=== PATIENT | female | born 1950 | race Caucasian/White ===

== ENCOUNTER → 2016-11-25 | Outpatient (REF) | payer MEDICARE, OTHER ==
[2016-11-25 12:25] LABS: ALBUMIN 3.6 GM/DL (3.2-5.2); ALBUMIN/GLOBULIN RATIO 1.16 (1.00-1.93); ALKALINE PHOSPHATASE 61 U/L (45-117); ALT/SGPT 21 U/L (12-78); ANION GAP 10 MEQ/L (8-16); AST/SGOT 17 U/L (15-37); BILIRUBIN,TOTAL 0.4 MG/DL (0.2-1.0); BLOOD UREA NITROGEN 24 MG/DL (7-18); CALCIUM LEVEL 8.5 MG/DL (8.8-10.2); CARBON DIOXIDE LEVEL 23 MEQ/L (21-32); CHLORIDE LEVEL 112 MEQ/L (98-107); FREE T4 1.36 NG/DL (0.76-1.46); GLOMERULAR FILTRATION RATE > 60.0 (>45); GLUCOSE, FASTING 88 MG/DL (80-110); POTASSIUM SERUM 4.3 MEQ/L (3.5-5.1); SODIUM LEVEL 145 MEQ/L (136-145); TOTAL PROTEIN 6.7 GM/DL (6.4-8.2)
== END ==
LOC: M SFHCPLAZ 08:18
PROVIDERS: ATTEND Family Medicine
DX: E78.5 Hyperlipidemia, unspecified (principal); E03.9 Hypothyroidism, unspecified; R73.01 Impaired fasting glucose

== ENCOUNTER → 2017-03-15 | Outpatient (REF) | payer MEDICARE, OTHER ==
[2017-03-15 12:37] LABS: ALBUMIN/GLOBULIN RATIO 1.25 (1.00-1.93); ALKALINE PHOSPHATASE 66 U/L (45-117); ALT/SGPT 26 U/L (12-78); ANION GAP 10 MEQ/L (8-16); AST/SGOT 16 U/L (15-37); BILIRUBIN,TOTAL 0.7 MG/DL (0.2-1.0); BLOOD UREA NITROGEN 33 MG/DL (7-18); CALCIUM LEVEL 9.5 MG/DL (8.8-10.2); CARBON DIOXIDE LEVEL 25 MEQ/L (21-32); CHLORIDE LEVEL 111 MEQ/L (98-107); CHOLESTEROL LEVEL 177 MG/DL (<200); CREATININE FOR GFR 0.76 MG/DL (0.55-1.02); GLOMERULAR FILTRATION RATE > 60.0 (>45); GLUCOSE, FASTING 96 MG/DL (80-110); POTASSIUM SERUM 4.7 MEQ/L (3.5-5.1); SODIUM LEVEL 146 MEQ/L (136-145); TOTAL PROTEIN 7.2 GM/DL (6.4-8.2); TRIGLYCERIDES LEVEL 64 MG/DL (<150)
== END ==
LOC: M SFHCPLAZ 08:34
PROVIDERS: ATTEND Family Medicine
DX: E78.5 Hyperlipidemia, unspecified (principal); E03.9 Hypothyroidism, unspecified; R73.01 Impaired fasting glucose

== ENCOUNTER → 2017-03-22 | Outpatient (CLI) | payer MEDICARE, OTHER ==
--- NOTE | 2017-03-22 11:25 | REP ---
Clinical: Pain. Technique: AP and lateral views of the right humerus. Findings: No acute fracture dislocation. Age-related changes at the shoulder and elbow joint noted. Surrounding soft tissues are unremarkable. Impression: Normal, age-appropriate right humerus radiographs. Signed by Yoel Baig MD 03/22/2017 11:17 A
--- NOTE | 2017-03-22 11:38 | REP ---
RIGHT SHOULDER, COMPLETE: 03/22/2017 CLINICAL HISTORY: Shoulder pain. FINDINGS: Three views are provided. AC joint shows no widening of the joint space, elevation of the clavicle or spur formation. The clavicle is without fracture or focal lesion. The ribs, scapula and humerus are without fracture. There are minor degenerative changes of the inferior aspect of the glenohumeral joint. There is one tiny soft tissue calcification adjacent to the greater tuberosity of the humeral head barely visible but suggesting some calcific tendinopathy or calcific bursitis over the supraspinatus insertional footprint on the greater tuberosity. No other finding. IMPRESSION: 1. Minor degenerative changes glenohumeral joint and question of a small amount of calcification representing supraspinatus calcific tendinopathy. AC joint normal. No fracture. Signed by Lux Amaro MD 03/22/2017 04:14 P
== END ==
LOC: M RAD 10:47
PROVIDERS: ATTEND Family Medicine
DX: S46.211A Strain of muscle, fascia and tendon of other parts of biceps, right arm, initial encounter (principal); M19.011 Primary osteoarthritis, right shoulder; X58.XXXA Exposure to other specified factors, initial encounter; Y92.89 Other specified places as the place of occurrence of the external cause; Y93.89 Activity, other specified; Y99.8 Other external cause status
CPT/HCPCS: 73030; 73060; G0463

== ENCOUNTER → 2017-03-28 | Outpatient (CLI) | payer MEDICARE, OTHER ==
--- NOTE | 2017-03-28 10:34 | REP ---
MRI RIGHT HUMERUS: TECHNIQUE: Multiple sequences obtained in the axial, coronal and sagittal planes. The humerus demonstrates normal marrow signal except for some mild subchondral marrow edema in the humeral head. There is no occult fracture. There are mild to moderate hypertrophic degenerative changes at the acromioclavicular joint. Rotator cuff tendons are not optimally evaluated. However, there may be a tear of the supraspinatus tendon. The visualized biceps tendon appears intact. There is no tenosynovitis. There does appear to be glenohumeral joint effusion. Other soft tissue structures of the upper arm more inferiorly demonstrate no abnormal signal. Distally at the level of the elbow, the triceps, biceps, brachialis and brachioradialis demonstrate no abnormal signal and appear intact. The ligaments at the elbow cannot be evaluated. IMPRESSION: Visualized biceps tendon appears intact. I cannot evaluate the biceps labral complex. I also cannot optimally evaluate the rotator cuff tendons. There may be a tear of the supraspinatus tendon. Rotator cuff tendons would be better evaluated with an MRI of the right shoulder. Signed by Benedicto Galaviz MD 03/28/2017 04:59 P
== END ==
LOC: M PLARAD 07:46
PROVIDERS: ATTEND Family Medicine
DX: S46.211A Strain of muscle, fascia and tendon of other parts of biceps, right arm, initial encounter (principal); X58.XXXA Exposure to other specified factors, initial encounter; Y93.9 Activity, unspecified; Y92.9 Unspecified place or not applicable; Y99.8 Other external cause status

== ENCOUNTER → 2017-04-04 | Outpatient (CLI) | payer MEDICARE, OTHER ==
--- NOTE | 2017-04-04 09:57 | REP ---
MRI LEFT SHOULDER: TECHNIQUE: Axial T2 fat sat, gradient echo, sagittal oblique T2 fat sat, coronal oblique T1, T2 fat sat. There is a full thickness partial tear of the anterior supraspinatus tendon. Other rotator cuff tendons appear intact. There are moderate hypertrophic degenerative changes of the acromioclavicular joint. There is downward sloping of the acromion. There is mild fluid in the acromioclavicular joint with mild subchondral cystic changes on both sides of the joint. There is a type 1 acromion. Biceps tendon is within the bicipital groove. There is no Hill-Sachs deformity. Deltoid muscle demonstrates no abnormal signal. There is fraying at the biceps labral complex. I do not see a discrete labral tear. Subchondral cystic changes and mild edema is seen in the humeral head superiorly and laterally. There is a moderate joint effusion with fluid extending into the subacromial/subdeltoid bursae. No paralabral cyst is seen. IMPRESSION: Partial full thickness tear anterior supraspinatus tendon. Moderate hypertrophic degenerative changes acromioclavicular joint with downward sloping of the acromion. Fraying at the biceps labral complex without a discrete labral tear. Subchondral cystic changes and edema in the superolateral humeral head. Moderate joint effusion with fluid extending into the subacromial/subdeltoid bursae. Signed by Benedicto Galaviz MD 04/04/2017 05:32 P
== END ==
LOC: M PLARAD 07:34
PROVIDERS: ATTEND Family Medicine
DX: S46.211A Strain of muscle, fascia and tendon of other parts of biceps, right arm, initial encounter (principal); X58.XXXA Exposure to other specified factors, initial encounter; Y93.9 Activity, unspecified; Y92.9 Unspecified place or not applicable; Y99.8 Other external cause status

== ENCOUNTER → 2017-05-26 | Outpatient (CLI) | payer MEDICARE, OTHER ==
--- NOTE | 2017-06-01 11:00 | RADONC ---
RADIATION ONCOLOGY CONSULTATION NOTE DATE: 05/26/2017 CHART NUMBER: [id number]. DIAGNOSIS: Left breast cancer. STAGE: IB, [id number]. ECOG PERFORMANCE STATUS: Zero. CONSULTATION NOTE: Ms. 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 HISTORY OF PRESENT ILLNESS: The patient was in the usual state of health until imaging revealed a suspicious area in her left breast. On 03/16/2017, the patient underwent lumpectomy and sentinel lymph node biopsy. Pathology revealed a 0.8 cm, well-differentiated infiltrating ductal carcinoma of the left breast. A total of three sentinel lymph nodes were sampled, two of which were negative for malignancy and one which showed a 1.5 mm micrometastasis. It was noted that there was extranodal tumor extension in that axillary lymph node. It was deemed that the patient would not benefit from systemic therapy and she is now presenting for consideration of postoperative radiation therapy as a therapeutic option. PAST MEDICAL HISTORY: The patient's past medical history is positive for a right rotator cuff tear. She has loss of mobility of the right upper extremity and is scheduled for surgery next 05/31/2017. The patient's past medical history is otherwise positive for cataracts, arthritis and some hypothyroidism. She had a tubal ligation in the past as well as a partial hysterectomy and a cholecystectomy. ALLERGIES: The patient has NO KNOWN DRUG ALLERGIES. SOCIAL HISTORY: The patient quit smoking in 1970. She does not abuse alcohol. FAMILY HISTORY: The patient's family history is positive for maternal grandmother with stomach cancer. REVIEW OF SYSTEMS: The patient's review of systems is positive for physical limitations secondary to her rotator cuff tear. It is otherwise noncontributory. Denies nausea, vomiting, fevers, chills, night sweats, diplopia, headaches, anxiety or depression, anorexia, weight loss, visual disturbances, chest pain, urinary or bowel difficulties, bone pain, or neurological problems. PHYSICAL EXAMINATION: The patient is a well-developed, well-nourished, 67-year-old white female, in no acute distress. HEENT exam is normocephalic, atraumatic. Extraocular movements are intact. There is no palpable cervical, supraclavicular, infraclavicular, axillary, or inguinal lymphadenopathy present. Lungs are clear to auscultation and percussion. Heart has a regular rate and rhythm. Abdomen is benign with no hepatosplenomegaly, masses, or tenderness. Breast examination reveals no masses or discharge bilaterally. Skeletal examination reveals no tenderness to pressure or percussion of the bony skeleton. Extremities reveal no clubbing, cyanosis, or edema. She has a very limited range of motion of her right extremity consistent with her above history of the rotator cuff tear. Neurologic exam is grossly intact, as is the remainder of the physical examination. ASSESSMENT: Clearly, the patient is a candidate for external beam radiation therapy and I so informed her. I have discussed with the patient in detail the potential benefits as well as possible acute and chronic sequelae of external beam radiation therapy. We discussed logistics of treatment planning, simulation and subsequent fractionated daily radiation treatments. The patient is scheduled for surgery on a rotator cuff on Tuesday. We therefore, will attempt to undertake simulation the following week if she is comfortable enough to lay on our treatment table. If not, we will reschedule after that. Thank you for allowing us to participate in the care of this very pleasant woman. If I could be of any further assistance or provide you with any information, please free to contact me anytime. As always, with warm regards. cc: Dr. Ramírez cc: MD Cuauhtemoc Jeffries MD
== END ==
LOC: M ONCR 13:55
PROVIDERS: ATTEND Radiology Radiation Oncology
DX: C50.912 Malignant neoplasm of unspecified site of left female breast (principal); Z87.891 Personal history of nicotine dependence

== ENCOUNTER → 2017-05-28 | Outpatient (CLI) | payer MEDICARE, OTHER ==
[~2017-05-28] MED LIST: ESTR62CR; LIPI20TA PO; PROT1TAB2 PO; RANI300C PO; SYNT88TA2 PO; ZOFR4TAB3 PO
[2017-05-28 15:19] LABS: BASO # 0.1 10^3/uL (0.0-0.2); BASO % 0.8 % (0.0-1.0); EOS # 0.3 10^3/uL (0.0-0.50); EOS % 3.9 % (0.0-3.0); IMMATURE GRANULOCYTE % 0.3 % (0-0); LYMPH # 2.7 10^3/uL (1.5-4.5); LYMPH % 40.4 % (24.0-44.0); MEAN CORPUSCULAR HEMOGLOBIN 29.1 pg (27.0-33.0); MEAN CORPUSCULAR VOLUME 88.3 fl (80.0-96.0); MONO # 0.5 10^3/uL (0.0-0.8); MONO % 7.7 % (0.0-5.0); NEUTROPHILS # 3.1 10^3/uL (1.8-7.7); NEUTROPHILS % 46.9 % (36.0-66.0); PLATELET COUNT, AUTOMATED 260 10^3/uL (150-450); RED CELL DISTRIBUTION WIDTH 13.2 % (11.5-14.5); WHITE BLOOD COUNT 6.6 10^3/uL (4.0-10.0)
[2017-05-28 15:34] LABS: INR 0.96
[2017-05-28 15:45] LABS: ALBUMIN 3.8 GM/DL (3.2-5.2); ALBUMIN/GLOBULIN RATIO 1.31 (1.00-1.93); ALKALINE PHOSPHATASE 65 U/L (45-117); ALT/SGPT 24 U/L (12-78); ANION GAP 6 MEQ/L (8-16); AST/SGOT 16 U/L (7-37); BILIRUBIN,TOTAL 0.6 MG/DL (0.2-1.0); BLOOD UREA NITROGEN 19 MG/DL (7-18); CALCIUM LEVEL 8.8 MG/DL (8.8-10.2); CARBON DIOXIDE LEVEL 29 MEQ/L (21-32); CHLORIDE LEVEL 105 MEQ/L (98-107); GLOMERULAR FILTRATION RATE > 60.0 (>45); GLUCOSE, FASTING 84 MG/DL (80-110); POTASSIUM SERUM 3.8 MEQ/L (3.5-5.1); SODIUM LEVEL 140 MEQ/L (136-145); TOTAL PROTEIN 6.7 GM/DL (6.4-8.2)
== END ==
LOC: M LAB 15:01
PROVIDERS: ATTEND Family Medicine
DX: Z01.818 Encounter for other preprocedural examination (principal)

== ENCOUNTER 2017-06-04 09:27 | Emergency (ER) | payer MEDICARE, OTHER ==
[~2017-06-04] VITALS: Ht 167.6 cm; Wt 68.9 kg
[2017-06-04] MEDS ORDERED: RANI300C PO (09:40)
[2017-06-04] MEDS ORDERED: LIPI20TA PO (09:40)
[2017-06-04] MEDS ORDERED: ESTR62CR (09:40)
[2017-06-04] MEDS ORDERED: SYNT88TA2 PO (09:40)
[2017-06-04] MEDS ORDERED: PROT1TAB2 PO (09:40)
[2017-06-04] MEDS ORDERED: ONDANSETRON 4 MG ORAL DISINTEGRATING TAB (S0181) PO ONE ×2 (10:30→13:30)
[2017-06-04 10:54] LABS: BASO % 0.2 % (0.0-1.0); EOS % 0.4 % (0.0-3.0); IMMATURE GRANULOCYTE % 0.2 % (0-0); LYMPH # 1.4 10^3/uL (1.5-4.5); LYMPH % 13.9 % (24.0-44.0); MEAN CORPUSCULAR HEMOGLOBIN 29.6 pg (27.0-33.0); MEAN CORPUSCULAR HGB CONC 34.1 g/dl (32.0-36.5); MEAN CORPUSCULAR VOLUME 86.7 fl (80.0-96.0); MONO # 0.6 10^3/uL (0.0-0.8); NEUTROPHILS # 7.9 10^3/uL (1.8-7.7); NEUTROPHILS % 79.3 % (36.0-66.0); PLATELET COUNT, AUTOMATED 230 10^3/uL (150-450); RED CELL DISTRIBUTION WIDTH 13.2 % (11.5-14.5)
[2017-06-04 11:15] LABS: ALBUMIN 3.1 GM/DL (3.2-5.2); ALBUMIN/GLOBULIN RATIO 1.07 (1.00-1.93); ALKALINE PHOSPHATASE 93 U/L (45-117); ALT/SGPT 45 U/L (12-78); AMYLASE 39 U/L (25-115); ANION GAP 9 MEQ/L (8-16); AST/SGOT 38 U/L (7-37); BILIRUBIN,DIRECT 0.2 MG/DL (0.0-0.2); BLOOD UREA NITROGEN 15 MG/DL (7-18); CALCIUM LEVEL 8.5 MG/DL (8.8-10.2); CARBON DIOXIDE LEVEL 26 MEQ/L (21-32); CHLORIDE LEVEL 104 MEQ/L (98-107); CREATININE FOR GFR 0.62 MG/DL (0.55-1.02); GLOMERULAR FILTRATION RATE > 60.0 (>45); GLUCOSE, FASTING 121 MG/DL (80-110); POTASSIUM SERUM 4.1 MEQ/L (3.5-5.1); SODIUM LEVEL 139 MEQ/L (136-145)
[2017-06-04] MEDS ORDERED: ACETAMINOPHEN 325 MG TAB PO ONE (11:45)
[2017-06-04] MEDS ORDERED: ZOFR4TAB3 PO (13:42)
[2017-06-04] MEDS ORDERED: DICYCLOMINE 10 MG CAP PO ONE (13:45)
[2017-06-04 14:51] VITALS: BP 145/61
== END 2017-06-04 15:05 | disposition home or self-care (01) ==
LOC: M ED 09:27
DX: R10.13 Epigastric pain (principal); R11.10 Vomiting, unspecified; R19.7 Diarrhea, unspecified; T40.605A Adverse effect of unspecified narcotics, initial encounter; X58.XXXA Exposure to other specified factors, initial encounter; Y92.89 Other specified places as the place of occurrence of the external cause; Y93.89 Activity, other specified; Y99.8 Other external cause status; E03.9 Hypothyroidism, unspecified; E78.5 Hyperlipidemia, unspecified; K21.9 Gastro-esophageal reflux disease without esophagitis; Z79.899 Other long term (current) drug therapy; Z79.82 Long term (current) use of aspirin; Z87.891 Personal history of nicotine dependence

== ENCOUNTER 2017-06-23 11:39 | Outpatient (RCR) | payer MEDICARE, OTHER | END 2017-07-10 | LOC: M ONCR 11:39 | DX: C50.512 Malignant neoplasm of lower-outer quadrant of left female breast (principal) | CPT/HCPCS: 77300 ==

== ENCOUNTER → 2017-06-23 | Outpatient (CLI) | payer MEDICARE, OTHER | LOC: M RAD 10:25 | PROVIDERS: ATTEND Radiology Radiation Oncology | DX: C50.919 Malignant neoplasm of unspecified site of unspecified female breast (principal) ==

== ENCOUNTER 2017-07-12 10:04 | Outpatient (RCR) | payer MEDICARE, OTHER | END 2017-08-10 | LOC: M ONCR 10:04 | DX: C50.512 Malignant neoplasm of lower-outer quadrant of left female breast (principal) | CPT/HCPCS: 77300 ==

== ENCOUNTER → 2017-07-12 | Outpatient (REF) | payer MEDICARE, OTHER ==
[2017-07-12 10:47] LABS: APPEARANCE, URINE MANUAL HAZY (CLEAR); COLOR, URINE MANUAL YELLOW (YELLOW)
[2017-07-12 10:48] LABS: BILIRUBIN, URINE MANUAL NEGATIVE (NEGATIVE); GLUCOSE, URINE (UA) MANUAL NEGATIVE (NEGATIVE); KETONE, URINE MANUAL NEGATIVE (NEGATIVE); MICROSCOPIC INDICATED? MAN YES (NO); NITRITE, URINE MANUAL NEGATIVE (NEGATIVE); PROTEIN, URINE MANUAL NEGATIVE (NEGATIVE); UROBILINOGEN, URINE MANUAL NORMAL (NORMAL)
[2017-07-12 10:50] LABS: BASO # 0.1 10^3/uL (0.0-0.2); BASO % 0.8 % (0.0-1.0); BLOOD URINE MANUAL NEGATIVE (NEGATIVE); EOS # 0.3 10^3/uL (0.0-0.50); EOS % 4.4 % (0.0-3.0); HEMOGLOBIN 13.2 g/dl (12.0-16.0); IMMATURE GRANULOCYTE % 0.2 % (0-0); LEUKOCYTE ESTERASE, URINE MAN TRACE (NEGATIVE); LYMPH # 1.5 10^3/uL (1.5-4.5); LYMPH % 25.8 % (24.0-44.0); MEAN CORPUSCULAR HEMOGLOBIN 29.3 pg (27.0-33.0); MEAN CORPUSCULAR HGB CONC 32.2 g/dl (32.0-36.5); MEAN CORPUSCULAR VOLUME 91.1 fl (80.0-96.0); MONO # 0.6 10^3/uL (0.0-0.8); MONO % 9.8 % (0.0-5.0); NEUTROPHILS # 3.5 10^3/uL (1.8-7.7); PLATELET COUNT, AUTOMATED 260 10^3/uL (150-450); RED CELL DISTRIBUTION WIDTH 14.6 % (11.5-14.5); WHITE BLOOD COUNT 5.9 10^3/uL (4.0-10.0)
[2017-07-12 10:51] LABS: BACTERIA, URINE LARGE AMOUNT; HYALINE CAST, URINE NONE SEEN /lpf (0-1); MICROSCOPIC EXAM PERFORMED; RBC, URINE NONE SEEN /hpf (0-3); SQUAMOUS EPITHELIAL CELL URINE MOD AMOUNT /hpf (SMALL AMT)
[2017-07-12 11:06] LABS: TOTAL 25(OH) VITAMIN D 48.9 NG/ML (30.0-100.0)
[2017-07-12 11:10] LABS: FREE T4 1.23 NG/DL (0.76-1.46)
[2017-07-12 11:23] LABS: ESTIMATED AVERAGE GLUCOSE 111 MG/DL (60-110); HEMOGLOBIN A1c 5.5 %
[2017-07-12 11:35] LABS: CREATININE, URINE 87.7 MG/DL; MALB URINE SIEMENS 41.4 MG/L; MAU/CREAT RATIO 47.2 MCG/MG (0.0-30.0)
== END ==
LOC: M SFHCPLAZ 08:18
DX: D72.819 Decreased white blood cell count, unspecified (principal); E03.9 Hypothyroidism, unspecified; R73.01 Impaired fasting glucose; E55.9 Vitamin D deficiency, unspecified
CPT/HCPCS: 84443

== ENCOUNTER 2017-08-11 11:01 | Outpatient (RCR) | payer MEDICARE, OTHER | END 2017-09-07 | LOC: M ONCR 11:01 | DX: C50.512 Malignant neoplasm of lower-outer quadrant of left female breast (principal) | CPT/HCPCS: 77300 ==

== ENCOUNTER → 2017-09-21 | Outpatient (CLI) | payer MEDICARE, OTHER | LOC: M ONCR 11:33 | DX: C50.512 Malignant neoplasm of lower-outer quadrant of left female breast (principal) | CPT/HCPCS: G0463 ==

== ENCOUNTER → 2017-12-08 | Outpatient (REF) | payer MEDICARE, OTHER | LOC: M SFHCWAGY 10:19 | DX: Z12.4 Encounter for screening for malignant neoplasm of cervix (principal) | CPT/HCPCS: G0123 ==

== ENCOUNTER → 2017-12-13 | Outpatient (CLI) | payer MEDICARE, OTHER ==
[~2017-12-13] MED LIST changes: +E-Z-GAS II EFFERVESCENT PACKET (SODIUM BICARB./CITRIC ACID/SIMETHICONE) As Ordered; +E-Z-HD 98% w/w 340GM SUSP BTL As Ordered; +E-Z-PAQUE 96% w/w SUSP 176GM BTL As Ordered; -ESTR62CR; -LIPI20TA PO; -PROT1TAB2 PO; -RANI300C PO; -SYNT88TA2 PO; -ZOFR4TAB3 PO
== END ==
LOC: M RAD 10:07
DX: R10.13 Epigastric pain (principal)
CPT/HCPCS: 74241

== ENCOUNTER → 2018-03-16 | Outpatient (REF) | payer MEDICARE, OTHER ==
[2018-03-16 11:47] LABS: BASO % 0.9 % (0.0-1.0); EOS # 0.2 10^3/uL (0.0-0.50); EOS % 4.2 % (0.0-3.0); IMMATURE GRANULOCYTE % 0.2 % (0-3.0); LYMPH # 1.4 10^3/uL (1.5-4.5); LYMPH % 33.5 % (24.0-44.0); MEAN CORPUSCULAR HEMOGLOBIN 29.3 pg (27.0-33.0); MEAN CORPUSCULAR HGB CONC 32.5 g/dl (32.0-36.5); MEAN CORPUSCULAR VOLUME 90.3 fl (80.0-96.0); MONO # 0.4 10^3/uL (0.0-0.8); MONO % 9.4 % (0.0-5.0); NEUTROPHILS # 2.2 10^3/uL (1.8-7.7); NEUTROPHILS % 51.8 % (36.0-66.0); PLATELET COUNT, AUTOMATED 223 10^3/uL (150-450); RED BLOOD COUNT 4.43 10^6/uL (4.00-5.40); RED CELL DISTRIBUTION WIDTH 13.3 % (11.5-14.5); WHITE BLOOD COUNT 4.2 10^3/uL (4.0-10.0)
[2018-03-16 12:06] LABS: ESTIMATED AVERAGE GLUCOSE 120 MG/DL (60-110); HEMOGLOBIN A1c 5.8 %
[2018-03-16 13:02] LABS: ALBUMIN 3.6 GM/DL (3.2-5.2); ALBUMIN/GLOBULIN RATIO 1.09 (1.00-1.93); ALKALINE PHOSPHATASE 77 U/L (45-117); ALT/SGPT 22 U/L (12-78); ANION GAP 9 MEQ/L (8-16); AST/SGOT 20 U/L (7-37); BILIRUBIN,TOTAL 0.8 MG/DL (0.2-1.0); BLOOD UREA NITROGEN 23 MG/DL (7-18); CARBON DIOXIDE LEVEL 25 MEQ/L (21-32); CHLORIDE LEVEL 108 MEQ/L (98-107); FREE T4 1.29 NG/DL (0.76-1.46); GLOMERULAR FILTRATION RATE > 60.0 (>39); GLUCOSE, FASTING 88 MG/DL (70-100); POTASSIUM SERUM 4.5 MEQ/L (3.5-5.1); SODIUM LEVEL 142 MEQ/L (136-145); THYROID STIMULATING HORMONE 0.079 uIU/ML (0.358-3.740); TOTAL PROTEIN 6.9 GM/DL (6.4-8.2)
== END ==
LOC: M SFHCPLAZ 08:49
DX: D72.819 Decreased white blood cell count, unspecified (principal); E55.9 Vitamin D deficiency, unspecified; E03.9 Hypothyroidism, unspecified; R73.01 Impaired fasting glucose; K21.9 Gastro-esophageal reflux disease without esophagitis
CPT/HCPCS: 84443

== ENCOUNTER → 2018-08-01 | Outpatient (REF) | payer MEDICARE, OTHER ==
[~2018-08-01] MED LIST changes: -E-Z-GAS II EFFERVESCENT PACKET (SODIUM BICARB./CITRIC ACID/SIMETHICONE) As Ordered; -E-Z-HD 98% w/w 340GM SUSP BTL As Ordered; -E-Z-PAQUE 96% w/w SUSP 176GM BTL As Ordered; +ESTR62CR; +LIPI20TA PO; +PROT1TAB2 PO; +RANI300C PO; +SILV40CR EXT; +SYNT88TA2 PO; +ZOFR4TAB14 PO
[2018-08-01 11:15] LABS: ALBUMIN 3.6 GM/DL (3.2-5.2); ALT/SGPT 21 U/L (12-78); BILIRUBIN,TOTAL 0.4 MG/DL (0.2-1.0); BLOOD UREA NITROGEN 26 MG/DL (7-18); CALCIUM LEVEL 9.1 MG/DL (8.8-10.2); CARBON DIOXIDE LEVEL 26 MEQ/L (21-32); CHLORIDE LEVEL 108 MEQ/L (98-107); CREATININE FOR GFR 0.87 MG/DL (0.55-1.30); FREE T4 1.14 NG/DL (0.76-1.46); GLOMERULAR FILTRATION RATE > 60.0 (>39); GLUCOSE, FASTING 95 MG/DL (70-100); POTASSIUM SERUM 4.6 MEQ/L (3.5-5.1); SODIUM LEVEL 143 MEQ/L (136-145); TOTAL 25(OH) VITAMIN D 78.9 NG/ML (30.0-100.0); TOTAL PROTEIN 7.1 GM/DL (6.4-8.2)
[2018-08-01 11:20] LABS: HEMOGLOBIN A1c 6.4 %
[2018-08-01 11:34] LABS: MALB URINE SIEMENS 44.5 MG/L; MAU/CREAT RATIO 33.9 MCG/MG (0.0-30.0)
[2018-08-01 12:51] LABS: APPEARANCE, URINE HAZY (CLEAR); BACTERIA, URINE AUTO NEGATIVE (NEGATIVE); BILIRUBIN, URINE AUTO NEGATIVE (NEGATIVE); BLOOD, URINE BLOOD NEGATIVE (NEGATIVE); COLOR, URINE AMBER (YELLOW); GLUCOSE, URINE (UA) AUTO NEGATIVE (NEGATIVE); KETONE, URINE AUTO NEGATIVE (NEGATIVE); LEUKOCYTE ESTERASE, URINE AUTO 3+ (NEGATIVE); MUCUS, URINE SMALL (NEGATIVE); NITRITE, URINE AUTO NEGATIVE (NEGATIVE); PROTEIN, URINE AUTO NEGATIVE (NEGATIVE); RBC, URINE AUTO 4 /HPF (0-3); SQUAMOUS EPITHELIAL CELL UR AU 4 /HPF (0-6); UROBILINOGEN, URINE AUTO 0.2 mg/dL (0.0-2.0); WBC, URINE AUTO 48 /HPF (0-3)
== END ==
LOC: M SFHCPLAZ 08:58
PROVIDERS: ATTEND Family Medicine
DX: E55.9 Vitamin D deficiency, unspecified (principal); E03.9 Hypothyroidism, unspecified; R73.01 Impaired fasting glucose

== ENCOUNTER → 2018-12-26 | Outpatient (REF) | payer MEDICARE, OTHER ==
[2018-12-26 14:17] LABS: BASO # 0.1 10^3/uL (0.0-0.2); BASO % 1.2 % (0.0-1.0); EOS # 0.2 10^3/uL (0.0-0.50); EOS % 4.7 % (0.0-3.0); HEMATOCRIT 42.2 % (36.0-47.0); HEMOGLOBIN 13.6 g/dl (12.0-15.5); LYMPH # 1.6 10^3/uL (1.5-4.5); LYMPH % 38.1 % (24.0-44.0); MEAN CORPUSCULAR HEMOGLOBIN 29.4 pg (27.0-33.0); MEAN CORPUSCULAR HGB CONC 32.2 g/dl (32.0-36.5); MEAN CORPUSCULAR VOLUME 91.3 fl (80.0-96.0); MONO # 0.3 10^3/uL (0.0-0.8); NEUTROPHILS % 47.8 % (36.0-66.0); PLATELET COUNT, AUTOMATED 225 10^3/uL (150-450); RED BLOOD COUNT 4.62 10^6/uL (4.00-5.40); WHITE BLOOD COUNT 4.3 10^3/uL (4.0-10.0)
[2018-12-26 14:31] LABS: ALBUMIN 3.9 GM/DL (3.2-5.2); ALT/SGPT 28 U/L (12-78); BILIRUBIN,TOTAL 0.6 MG/DL (0.2-1.0); BLOOD UREA NITROGEN 24 MG/DL (7-18); CALCIUM LEVEL 9.3 MG/DL (8.8-10.2); CARBON DIOXIDE LEVEL 29 MEQ/L (21-32); CHLORIDE LEVEL 109 MEQ/L (98-107); CHOLESTEROL LEVEL 179 MG/DL (<200); CHOLESTEROL RISK RATIO 2.386 (<5); FREE T4 0.92 NG/DL (0.76-1.46); GLOMERULAR FILTRATION RATE > 60.0 (>39); GLUCOSE, FASTING 91 MG/DL (70-100); HDL CHOLESTEROL 75 MG/DL (>40); LDL CHOLESTEROL 88 MG/DL (<100); NON-HDL-C 104 MG/DL; POTASSIUM SERUM 4.1 MEQ/L (3.5-5.1); SODIUM LEVEL 143 MEQ/L (136-145); TOTAL PROTEIN 7.2 GM/DL (6.4-8.2); TRIGLYCERIDES LEVEL 82 MG/DL (<150)
[2018-12-26 14:38] LABS: HEMOGLOBIN A1c 6.3 %
== END ==
LOC: M SFHCPLAZ 09:20
PROVIDERS: ATTEND Family Medicine
DX: D72.819 Decreased white blood cell count, unspecified (principal); R73.01 Impaired fasting glucose; E03.9 Hypothyroidism, unspecified; E78.5 Hyperlipidemia, unspecified

== ENCOUNTER → 2019-06-19 | Outpatient (REF) | payer MEDICARE, OTHER ==
[2019-06-19 16:54] LABS: CHOLESTEROL RISK RATIO 2.342 (<5); FREE T4 1.47 NG/DL (0.76-1.46); THYROID STIMULATING HORMONE 0.023 uIU/ML (0.358-3.740)
[2019-06-19 16:56] LABS: PTH INTACT 64.3 PG/ML (18.5-88.0); TOTAL 25(OH) VITAMIN D 57.7 NG/ML (30.0-100.0)
[2019-06-19 16:59] LABS: HEMOGLOBIN A1c 6.2 %
== END ==
LOC: M SFHCPLAZ 13:11
PROVIDERS: ATTEND Family Medicine
DX: K21.9 Gastro-esophageal reflux disease without esophagitis (principal); E03.9 Hypothyroidism, unspecified; R73.01 Impaired fasting glucose; E55.9 Vitamin D deficiency, unspecified; E78.5 Hyperlipidemia, unspecified; R10.13 Epigastric pain

== ENCOUNTER → 2019-06-19 | Outpatient (CLI) | payer MEDICARE, OTHER ==
--- NOTE | 2019-06-19 15:51 | REPPI ---
Chest x-ray: Two views. History: Intercostal neuropathy pain. No comparison chest x-ray. Findings: There is a moderate broad-based dextroconvex scoliotic curve of the lower thoracic spine. Thoracic vertebral body heights are preserved. Alignment is normal. There is degenerative disc disease at multiple levels. There are clips in the right upper quadrant of the abdomen. The lungs are well inflated and clear. There are some clips in the soft tissues of the left breast as well and the breast tissues are asymmetric suggesting previous left breast surgery. Heart is not enlarged. No hilar or mediastinal mass is seen. Impression: Dextroconvex thoracic scoliosis and degenerative disc disease. Clips in the right upper quadrant of the abdomen and the soft tissue of the left breast. Otherwise no acute disease. Electronically Signed by Waldemar Carney MD 06/19/2019 05:20 P
--- NOTE | 2019-06-19 15:58 | REPPI ---
Seven views cervical spine three views thoracic spine: 06/19/2019. Indication: Cervical thoracic pain. Comparison: 12/18/2009. Findings: There is no acute fracture, subluxation or dislocation. Extensive spondylosis is present most pronounced anteriorly at C5/C6. There is dextroscoliosis of the thoracic spine with the convexity centered at T10/T11. No lytic or blastic lesions are detected. Diffuse osteopenia is noted. No significant paraspinal soft tissue abnormalities are detected. Impression: No acute osseous injuries of the cervical or thoracic spines. Electronically Signed by Edu Montiel DO 06/19/2019 03:49 P
== END ==
LOC: M PLAIMG 13:38
PROVIDERS: ATTEND Family Medicine
DX: M85.88 Other specified disorders of bone density and structure, other site (principal); G54.8 Other nerve root and plexus disorders; K21.9 Gastro-esophageal reflux disease without esophagitis; E03.9 Hypothyroidism, unspecified; R73.01 Impaired fasting glucose; E55.9 Vitamin D deficiency, unspecified; E78.5 Hyperlipidemia, unspecified; R10.13 Epigastric pain
CPT/HCPCS: 36415; 71046; 72052; 72072; 80061; 82306; 83036; 83516; 83525; 83690; 83970; 84439; 84443; 86677; G0463

== ENCOUNTER → 2019-07-12 | Outpatient (CLI) | payer MEDICARE, OTHER ==
--- NOTE | 2019-07-18 13:45 | DEXA ---
AP SPINE L1 - L4 1.426 1.9 3.6 LT FEMUR TOTAL 0.954 -0.4 1.1 LT NECK 0.832 -1.5 0.3 RT FEMUR TOTAL 0.924 -0.7 0.9 RT NECK 0.781 -1.8 -0.1 TOTAL BODY TOTAL OTHER COMMENTS: Normal bone densitometry of the spine. There is low bone density of the hips. Lumbar scoliosis. The density of the spine has increased 2.1% since the initial exam on 04/10/2003. The spine density has decreased 0.6% since the most recent exam on 08/05/2015. The density of the left hip has decreased 1.8% since the initial exam on 04/10/2003. The density of the left hip has decreased 6.3% since the most recent exam on 08/05/2015. The density of the right hip has decreased 14.9% since the initial exam on 04/10/2003. The density of the right hip has decreased 6.6% since the most recent exam on 08/05/2015. FOLLOW-UP: Recommendation for the next bone density exam: 2 years. OLI
== END ==
LOC: M WHC 12:20
PROVIDERS: ATTEND Family Medicine
DX: M85.851 Other specified disorders of bone density and structure, right thigh (principal); M85.852 Other specified disorders of bone density and structure, left thigh; M41.26 Other idiopathic scoliosis, lumbar region

== ENCOUNTER → 2019-10-31 | Outpatient (REF) | payer MEDICARE, OTHER | LOC: M SFHCPLAZ 13:35 | PROVIDERS: ATTEND Family Medicine | DX: E03.9 Hypothyroidism, unspecified (principal); R73.01 Impaired fasting glucose; E78.5 Hyperlipidemia, unspecified; R10.13 Epigastric pain ==

== ENCOUNTER → 2019-11-01 | Outpatient (CLI) | payer MEDICARE, OTHER ==
[2019-11-01 10:47] LABS: EOS # 0.2 10^3/uL (0.0-0.5); EOS % 3.8 % (0.0-3.0); HEMATOCRIT 40.8 % (36.0-47.0); HEMOGLOBIN 13.3 g/dl (12.0-15.5); LYMPH # 1.8 10^3/uL (1.5-5.0); LYMPH % 42.2 % (24.0-44.0); MEAN CORPUSCULAR HEMOGLOBIN 29.1 pg (27.0-33.0); MEAN CORPUSCULAR HGB CONC 32.6 g/dl (32.0-36.5); MEAN CORPUSCULAR VOLUME 89.3 fl (80.0-96.0); MONO # 0.3 10^3/uL (0.0-0.8); NEUTROPHILS # 1.9 10^3/uL (1.5-8.5); PLATELET COUNT, AUTOMATED 208 10^3/uL (150-450); RED BLOOD COUNT 4.57 10^6/uL (4.00-5.40); WHITE BLOOD COUNT 4.2 10^3/uL (4.0-10.0)
[2019-11-01 11:01] LABS: ALBUMIN 3.6 GM/DL (3.2-5.2); ALT/SGPT 27 U/L (12-78); BILIRUBIN,TOTAL 0.7 MG/DL (0.2-1.0); BLOOD UREA NITROGEN 23 MG/DL (7-18); CALCIUM LEVEL 8.9 MG/DL (8.8-10.2); CARBON DIOXIDE LEVEL 31 MEQ/L (21-32); CHLORIDE LEVEL 110 MEQ/L (98-107); CHOLESTEROL LEVEL 159 MG/DL (<200); CHOLESTEROL RISK RATIO 2.523 (<5); CREATININE FOR GFR 0.72 MG/DL (0.55-1.30); FREE T4 1.37 NG/DL (0.76-1.46); GLOMERULAR FILTRATION RATE > 60.0 (>39); GLUCOSE, FASTING 101 MG/DL (70-100); HDL CHOLESTEROL 63 MG/DL (>40); LDL CHOLESTEROL 80 MG/DL (<100); NON-HDL-C 96 MG/DL; POTASSIUM SERUM 3.8 MEQ/L (3.5-5.1); SODIUM LEVEL 143 MEQ/L (136-145); THYROID STIMULATING HORMONE 0.144 uIU/ML (0.358-3.740); TOTAL PROTEIN 6.9 GM/DL (6.4-8.2); TRIGLYCERIDES LEVEL 79 MG/DL (<150)
[2019-11-01 11:03] LABS: VITAMIN B12 LEVEL 1025 PG/ML (247-911)
== END ==
LOC: M PLALAB 08:43
PROVIDERS: ATTEND Family Medicine
DX: R10.13 Epigastric pain (principal); E78.5 Hyperlipidemia, unspecified; R73.01 Impaired fasting glucose

== ENCOUNTER → 2019-11-05 | Outpatient (CLI) | payer MEDICARE, OTHER ==
--- NOTE | 2019-11-05 11:35 | REP ---
NUCLEAR GASTRIC EMPTYING SCAN: Following the oral administration of 1.06 mCi technetium-99m sulfur colloid in two scrambled eggs and 2 ounces of water, multiple images of the upper abdomen are performed in the anterior and posterior projections. Gastric activity is measured. At the end of 90 minutes, 27% of the ingested activity has emptied from the stomach. T1/2 is calculated to be 155 minutes. This is above normal value of 90 minutes. IMPRESSION: Mild to moderately delayed gastric emptying. Electronically Signed by Benedicto Galaviz MD 11/05/2019 11:56 A
== END ==
LOC: M RAD 07:23
PROVIDERS: ATTEND Family Medicine
DX: K30 Functional dyspepsia (principal)
CPT/HCPCS: 78264; A9541

== ENCOUNTER → 2020-03-27 | Outpatient (CLI) | payer MEDICARE, OTHER ==
[2020-03-27 15:08] LABS: ALBUMIN 3.9 GM/DL (3.2-5.2); ALT/SGPT 29 U/L (12-78); BILIRUBIN,TOTAL 0.7 MG/DL (0.2-1.0); BLOOD UREA NITROGEN 28 MG/DL (7-18); CALCIUM LEVEL 9.4 MG/DL (8.8-10.2); CARBON DIOXIDE LEVEL 25 MEQ/L (21-32); CHLORIDE LEVEL 110 MEQ/L (98-107); CHOLESTEROL LEVEL 204 MG/DL (<200); CHOLESTEROL RISK RATIO 2.615 (<5); FREE T4 1.32 NG/DL (0.76-1.46); GLOMERULAR FILTRATION RATE > 60.0 (>39); GLUCOSE, FASTING 96 MG/DL (70-100); HDL CHOLESTEROL 78 MG/DL (>40); LDL CHOLESTEROL 109 MG/DL (<100); NON-HDL-C 126 MG/DL; SODIUM LEVEL 143 MEQ/L (136-145); THYROID STIMULATING HORMONE 0.356 uIU/ML (0.358-3.740); TOTAL PROTEIN 7.3 GM/DL (6.4-8.2); TRIGLYCERIDES LEVEL 87 MG/DL (<150)
[2020-03-27 15:52] LABS: HEMOGLOBIN A1c 6.1 %
[2020-03-29 17:06] LABS: D001-IgE D pteronyssinus <0.10 kU/L (Class 0); E001-IgE Cat Epith/Dander < 0.10 kU/L (Class 0); E005-IgE Dog Dander < 0.10 kU/L (Class 0); G002-IgE Bermuda Grass < 0.10 kU/L (Class 0); G008-IgE Kentucky Bluegrass < 0.10 kU/L (Class 0); INSULIN LEVEL 22.3 uIU/mL (2.6-24.9); M001-IgE Penicillium chrysogen < 0.10 kU/L (Class 0); M002 IgE Cladosporium herbaru < 0.10 kU/L (Class 0); M003 IgE Aspergillus fumigatu < 0.10 kU/L (Class 0); M006-IgE Alternaria alternata < 0.10 kU/L (Class 0); T001-IgE Maple/Box Elder < 0.10 kU/L (Class 0); T003-IgE Common Silver Birch < 0.10 kU/L (Class 0); T006-IgE Cedar, Mountain < 0.10 kU/L (Class 0); T007-IgE Oak, White < 0.10 kU/L (Class 0); T008-IgE Elm, American < 0.10 kU/L (Class 0); T015-IgE Ash, White < 0.10 kU/L (Class 0); T041-IgE Hickory, White < 0.10 kU/L (Class 0); T070-IgE White Mulberry < 0.10 kU/L (Class 0); W001-IgE Ragweed, Short < 0.10 kU/L (Class 0); W009-IgE Plantain, English < 0.10 kU/L (Class 0); W014-IgE Pigweed, Rough < 0.10 kU/L (Class 0); W018-IgE Sheep Sorrel < 0.10 kU/L (Class 0)
== END ==
LOC: M PLALAB 10:44
PROVIDERS: ATTEND Family Medicine
DX: E03.9 Hypothyroidism, unspecified (principal); R73.01 Impaired fasting glucose; J30.9 Allergic rhinitis, unspecified

== ENCOUNTER → 2020-05-06 | Outpatient (CLI) | payer MEDICARE, OTHER | LOC: M LABSMTC 10:32 | PROVIDERS: ATTEND Family Medicine | DX: Z20.828 Contact with and (suspected) exposure to other viral communicable diseases (principal) | CPT/HCPCS: C9803; U0003 ==

== ENCOUNTER → 2020-09-29 | Outpatient (REF) | payer MEDICARE, OTHER ==
[2020-09-29 15:58] LABS: HEMOGLOBIN A1c 5.9 %
[2020-09-29 16:19] LABS: MALB URINE SIEMENS 31.5 MG/L; MAU/CREAT RATIO 28.8 MCG/MG (0.0-30.0)
[2020-09-29 17:09] LABS: ALBUMIN 4.2 GM/DL (3.2-5.2); ALT/SGPT 28 U/L (12-78); BILIRUBIN,TOTAL 0.9 MG/DL (0.2-1.0); BLOOD UREA NITROGEN 26 MG/DL (7-18); CALCIUM LEVEL 9.5 MG/DL (8.8-10.2); CARBON DIOXIDE LEVEL 29 MEQ/L (21-32); CHLORIDE LEVEL 109 MEQ/L (98-107); CHOLESTEROL LEVEL 192 MG/DL (<200); CREATININE FOR GFR 0.74 MG/DL (0.55-1.30); FREE T4 1.34 NG/DL (0.76-1.46); GLOMERULAR FILTRATION RATE > 60.0 (>39); GLUCOSE, FASTING 108 MG/DL (70-100); HDL CHOLESTEROL 79 MG/DL (>40); IMMUNOGLOBULIN E 40.3 IU/ML (<100); LDL CHOLESTEROL 92 MG/DL (<100); NON-HDL-C 113 MG/DL; POTASSIUM SERUM 4.2 MEQ/L (3.5-5.1); PTH INTACT 54.1 PG/ML (18.5-88.0); SODIUM LEVEL 141 MEQ/L (136-145); THYROID STIMULATING HORMONE 0.173 uIU/ML (0.358-3.740); TOTAL 25(OH) VITAMIN D 77.9 NG/ML (30.0-100.0); TOTAL PROTEIN 7.4 GM/DL (6.4-8.2); TRIGLYCERIDES LEVEL 103 MG/DL (<150)
== END ==
LOC: M SFHCPLAZ 10:25
PROVIDERS: ATTEND Family Medicine
DX: R73.01 Impaired fasting glucose (principal); E55.9 Vitamin D deficiency, unspecified; R51.9 Headache, unspecified; Z79.899 Other long term (current) drug therapy
CPT/HCPCS: 36415; 80053; 80061; 82043; 82306; 82785; 83036; 83970; 84439; 84443; 86140; G0463

== ENCOUNTER → 2021-01-01 | Outpatient (REF) | payer MEDICARE, OTHER ==
[2021-01-01 13:29] LABS: APPEARANCE, URINE CLOUDY (CLEAR); BACTERIA, URINE AUTO 2+ (NEGATIVE); BILIRUBIN, URINE AUTO NEGATIVE (NEGATIVE); BLOOD, URINE BLOOD NEGATIVE (NEGATIVE); COLOR, URINE YELLOW (YELLOW); GLUCOSE, URINE (UA) AUTO NEGATIVE (NEGATIVE); KETONE, URINE AUTO NEGATIVE (NEGATIVE); LEUKOCYTE ESTERASE, URINE AUTO 3+ (NEGATIVE); MUCUS, URINE SMALL (NEGATIVE); NITRITE, URINE AUTO NEGATIVE (NEGATIVE); PROTEIN, URINE AUTO NEGATIVE (NEGATIVE); RBC, URINE AUTO 12 /HPF (0-3); SPECIFIC GRAVITY URINE AUTO 1.015 (1.002-1.035); SQUAMOUS EPITHELIAL CELL UR AU 5 /HPF (0-6); UROBILINOGEN, URINE AUTO 0.2 mg/dL (0.0-2.0); WBC, URINE AUTO TNTC /HPF (0-3)
== END ==
LOC: M LAB REF 12:09
PROVIDERS: ATTEND Physician Assistant Medical
DX: R30.0 Dysuria (principal)

== ENCOUNTER → 2021-01-06 | Outpatient (CLI) | payer MEDICARE, OTHER ==
--- NOTE | 2021-01-06 10:38 | REP ---
INDICATION: LEFT FLANK PAIN - LABS FIRST COMPARISON: None TECHNIQUE: Real time woods scale ultrasound examination using curved array transducer. FINDINGS: The bilateral kidneys are normal in reniform shape and size appearing slightly echogenic suggesting medical renal disease. No hydronephrosis, nephrolithiasis or mass lesion. No perinephric fluid collection. Right kidney measures 10.3 x 6.4 x 5.0 cm. Left kidney measures 11.4 x 5.2 x 5.8 cm and includes 3.0 cm lower pole cyst. Bladder is unremarkable. IMPRESSION: 1. Findings suggest age-related medical renal disease. 2. 3 cm left lower pole cyst. <Electronically signed by Yoel Baig > 01/06/21 1033
[2021-01-06 10:39] LABS: BASO % 0.7 % (0.0-1.0); EOS # 0.2 10^3/uL (0.0-0.5); EOS % 2.9 % (0.0-3.0); HEMATOCRIT 41.3 % (36.0-47.0); HEMOGLOBIN 13.3 g/dl (12.0-15.5); LYMPH # 2.2 10^3/uL (1.5-5.0); LYMPH % 40.5 % (24.0-44.0); MEAN CORPUSCULAR HGB CONC 32.2 g/dl (32.0-36.5); MEAN CORPUSCULAR VOLUME 90.2 fl (80.0-96.0); MONO # 0.5 10^3/uL (0.0-0.8); MONO % 8.7 % (2.0-8.0); NEUTROPHILS # 2.6 10^3/uL (1.5-8.5); PLATELET COUNT, AUTOMATED 195 10^3/uL (150-450); RED BLOOD COUNT 4.58 10^6/uL (4.00-5.40); WHITE BLOOD COUNT 5.4 10^3/uL (4.0-10.0)
[2021-01-06 11:13] LABS: ALBUMIN 3.8 GM/DL (3.2-5.2); ALT/SGPT 25 U/L (12-78); BILIRUBIN,TOTAL 0.6 MG/DL (0.2-1.0); BLOOD UREA NITROGEN 25 MG/DL (7-18); CALCIUM LEVEL 9.3 MG/DL (8.8-10.2); CARBON DIOXIDE LEVEL 27 MEQ/L (21-32); CHLORIDE LEVEL 110 MEQ/L (98-107); CREATININE FOR GFR 0.85 MG/DL (0.55-1.30); GLOMERULAR FILTRATION RATE > 60.0 (>39); GLUCOSE, FASTING 98 MG/DL (70-100); POTASSIUM SERUM 4.4 MEQ/L (3.5-5.1); SODIUM LEVEL 142 MEQ/L (136-145)
--- NOTE | 2021-01-06 12:42 | REP ---
INDICATION: midline thoracic pain COMPARISON: 06/19/2019 TECHNIQUE: AP, lateral, and swimmers views. FINDINGS: Chronic levoconvex scoliosis through the lumbar spine is again noted and stable. Thoracic spine demonstrates relatively normal alignment with mild/moderate multilevel changes including osteophytosis, endplate sclerosis and minimal disc space narrowing at multiple levels. No acute fracture/compression injury or subluxation. IMPRESSION: Moderate chronic degenerative changes stable compared to 2019. No acute fracture/compression injury or subluxation. <Electronically signed by Yoel Baig > 01/06/21 [id number]
== END ==
LOC: M LAB 09:43
PROVIDERS: ATTEND Nurse Practitioner Family
DX: M51.36 Other intervertebral disc degeneration, lumbar region (principal); N28.1 Cyst of kidney, acquired; R10.9 Unspecified abdominal pain

== ENCOUNTER → 2021-01-22 | Outpatient (CLI) | payer MEDICARE, OTHER ==
--- NOTE | 2021-01-22 10:56 | REP ---
INDICATION: LT FLANK PAIN, R/O RENAL CALC/LESION COMPARISON: 01/06/2021 TECHNIQUE: Real time woods scale ultrasound examination using curved array transducer. FINDINGS: Right kidney measures 10.4 x 6.0 x 4.9 cm and demonstrates 5 mm upper pole nonobstructing calculus. No hydronephrosis, nephrolithiasis, cystic or renal mass lesion. Increased central sinus fat suggesting medical renal disease. Left kidney measures 12.7 x 6.7 x 5.8 cm and again includes 2.8 cm simple lower pole cyst without hydronephrosis, nephrolithiasis, or renal mass lesion. Increased central sinus fat suggesting medical renal disease. Bladder is unremarkable. IMPRESSION: 1. Findings consistent with medical renal disease. 2. 5 mm nonobstructing right renal calculus and stable left lower pole simple cyst. No hydronephrosis. <Electronically signed by Yoel Baig > 01/22/21 1055
== END ==
LOC: M RAD 10:15
PROVIDERS: ATTEND Nurse Practitioner Family
DX: N20.0 Calculus of kidney (principal); N28.1 Cyst of kidney, acquired; R10.9 Unspecified abdominal pain

== ENCOUNTER → 2021-01-26 | Outpatient (CLI) | payer MEDICARE, OTHER ==
[2021-01-26 16:13] LABS: ALBUMIN 3.3 GM/DL (3.2-5.2); ALT/SGPT 35 U/L (12-78); BILIRUBIN,TOTAL 0.6 MG/DL (0.2-1.0); BLOOD UREA NITROGEN 17 MG/DL (7-18); CALCIUM LEVEL 8.9 MG/DL (8.8-10.2); CARBON DIOXIDE LEVEL 27 MEQ/L (21-32); CHLORIDE LEVEL 109 MEQ/L (98-107); CREATININE FOR GFR 0.75 MG/DL (0.55-1.30); GLOMERULAR FILTRATION RATE > 60.0 (>39); GLUCOSE, FASTING 93 MG/DL (70-100); POTASSIUM SERUM 3.8 MEQ/L (3.5-5.1); SODIUM LEVEL 141 MEQ/L (136-145); TOTAL PROTEIN 6.8 GM/DL (6.4-8.2)
== END ==
LOC: M PLALAB 12:50
PROVIDERS: ATTEND Physician Assistant Medical
DX: N13.30 Unspecified hydronephrosis (principal)

== ENCOUNTER → 2021-03-03 | Outpatient (CLI) | payer MEDICARE, OTHER ==
--- NOTE | 2021-03-03 15:01 | REP ---
INDICATION: COUGH COMPARISON: 06/19/2019 TECHNIQUE: PA and lateral. FINDINGS: The mediastinum and cardiac silhouette are normal. The lung tariq are clear and without acute consolidation, effusion, or pneumothorax. The skeletal structures are intact and normal. IMPRESSION: No acute cardiopulmonary process. <Electronically signed by Yoel Baig > 03/03/21 1331
--- NOTE | 2021-03-03 15:02 | REP ---
INDICATION: COUGH. COMPARISON: None. TECHNIQUE: Maria, Marti, lateral and SMV views of the sinuses. FINDINGS: Sinuses are relatively well aerated without obvious mucosal thickening or fluid level. No foreign body. Osseous structures are intact. IMPRESSION: Relatively normal sinus radiograph series. <Electronically signed by Yoel Baig > 03/03/21 [id number]
== END ==
LOC: M RAD 14:26
PROVIDERS: ATTEND Family Medicine
DX: N20.0 Calculus of kidney (principal); R73.01 Impaired fasting glucose; E03.9 Hypothyroidism, unspecified; R05 Cough; Z79.899 Other long term (current) drug therapy
CPT/HCPCS: 36415; 70220; 71046; 80053; 81001; 82306; 83036; 83525; 83970; 84439; 84443; 84550; 85025; 86140; 87088; 87186; G0463

== ENCOUNTER → 2021-03-03 | Outpatient (CLI) | payer MEDICARE, OTHER ==
[2021-03-03 15:20] LABS: AMORPHOUS SEDIMENT SMALL (NEGATIVE); APPEARANCE, URINE CLOUDY (CLEAR); BACTERIA, URINE AUTO 2+ (NEGATIVE); BILIRUBIN, URINE AUTO NEGATIVE (NEGATIVE); BLOOD, URINE BLOOD NEGATIVE (NEGATIVE); CALCIUM OXALATE CRYSTALS MODERATE; COLOR, URINE YELLOW (YELLOW); GLUCOSE, URINE (UA) AUTO NEGATIVE (NEGATIVE); KETONE, URINE AUTO NEGATIVE (NEGATIVE); LEUKOCYTE ESTERASE, URINE AUTO 2+ (NEGATIVE); MUCUS, URINE SMALL (NEGATIVE); NITRITE, URINE AUTO POSITIVE (NEGATIVE); PROTEIN, URINE AUTO 1+ mg/dL (NEGATIVE); RBC, URINE AUTO 13 /HPF (0-3); SPECIFIC GRAVITY URINE AUTO 1.016 (1.002-1.035); SQUAMOUS EPITHELIAL CELL UR AU 2 /HPF (0-6); UROBILINOGEN, URINE AUTO 0.2 mg/dL (0.0-2.0); WBC, URINE AUTO 125 /HPF (0-3)
[2021-03-03 15:21] LABS: BASO % 0.7 % (0.0-1.0); EOS # 0.1 10^3/uL (0.0-0.5); EOS % 2.1 % (0.0-3.0); HEMATOCRIT 41.3 % (36.0-47.0); HEMOGLOBIN 13.5 g/dl (12.0-15.5); LYMPH # 2.3 10^3/uL (1.5-5.0); LYMPH % 37.9 % (24.0-44.0); MEAN CORPUSCULAR HGB CONC 32.7 g/dl (32.0-36.5); MEAN CORPUSCULAR VOLUME 88.8 fl (80.0-96.0); MONO # 0.4 10^3/uL (0.0-0.8); MONO % 7.2 % (2.0-8.0); NEUTROPHILS # 3.2 10^3/uL (1.5-8.5); NEUTROPHILS % 51.9 % (36.0-66.0); PLATELET COUNT, AUTOMATED 254 10^3/uL (150-450); RED BLOOD COUNT 4.65 10^6/uL (4.00-5.40); WHITE BLOOD COUNT 6.1 10^3/uL (4.0-10.0)
[2021-03-03 16:00] LABS: ALBUMIN 3.7 GM/DL (3.2-5.2); ALT/SGPT 30 U/L (12-78); BILIRUBIN,TOTAL 0.6 MG/DL (0.2-1.0); BLOOD UREA NITROGEN 20 MG/DL (7-18); CALCIUM LEVEL 8.5 MG/DL (8.8-10.2); CARBON DIOXIDE LEVEL 26 MEQ/L (21-32); CHLORIDE LEVEL 112 MEQ/L (98-107); CREATININE FOR GFR 0.69 MG/DL (0.55-1.30); FREE T4 1.51 NG/DL (0.76-1.46); GLOMERULAR FILTRATION RATE > 60.0 (>39); GLUCOSE, FASTING 89 MG/DL (70-100); SODIUM LEVEL 142 MEQ/L (136-145); TOTAL PROTEIN 7.5 GM/DL (6.4-8.2); URIC ACID 4.1 MG/DL (2.6-6.0)
[2021-03-03 16:01] LABS: PTH INTACT 82.9 PG/ML (18.5-88.0); TOTAL 25(OH) VITAMIN D 61.5 NG/ML (30.0-100.0)
[2021-03-03 16:21] LABS: HEMOGLOBIN A1c 5.8 %
== END ==
LOC: M PLALAB 13:30
PROVIDERS: ATTEND Family Medicine
DX: N20.0 Calculus of kidney (principal); R73.01 Impaired fasting glucose; E03.9 Hypothyroidism, unspecified; R05 Cough; Z79.899 Other long term (current) drug therapy

== ENCOUNTER → 2021-03-05 | Outpatient (REF) | payer MEDICARE, OTHER | LOC: M LAB REF 14:37 | PROVIDERS: ATTEND Family Medicine | DX: N20.0 Calculus of kidney (principal) ==

== ENCOUNTER → 2021-03-13 | Outpatient (CLI) | payer MEDICARE, OTHER ==
--- NOTE | 2021-03-13 13:01 | REP ---
INDICATION: NEPHROLITHIASIS COMPARISON: Comparison CT study is from November 06, 2007. TECHNIQUE: Helical scanning is acquired and 3 mm axial images were reformatted. Coronal and sagittal MPR images were generated and reviewed. FINDINGS: Preliminary digital track welder radiograph demonstrates a moderate levoconvex lumbar scoliotic curve. There are surgical clips in the right upper quadrant of the abdomen. Bowel gas pattern is normal. There is a surgical clip visible in the left true pelvis. Axial images at the lung bases show no evidence of infiltrate or effusion. The liver and the spleen are normal in size homogeneous in texture. The gallbladder is surgically absent. Normal adrenal glands are seen. No abnormality is noted in the pancreas. There is a cyst low-density cyst in the lower pole the left kidney which measures 2.8 cm in greatest diameter. There is a 3 mm intrarenal calculus in the lower pole the right kidney. No hydronephrosis is seen on either side. No ureteral stone or bladder stone is appreciated. There is left colonic diverticulosis without CT evidence of diverticulitis. Small and large intestinal bowel loops are otherwise unremarkable. The uterus is surgically absent. A normal appendix is visible in the right lower quadrant. No abdominal wall defect is seen. No bony destructive lesion is appreciated. IMPRESSION: CT confirms the presence of an intrarenal calculus in the lower pole of the right kidney without hydronephrosis.9 status post cholecystectomy and hysterectomy. Levoconvex lumbar scoliosis and left colonic diverticulosis are noted. <Electronically signed by Antonio Carney > 03/13/21 [id number]
== END ==
LOC: M RAD 11:10
PROVIDERS: ATTEND Family Medicine
DX: N20.0 Calculus of kidney (principal); N28.1 Cyst of kidney, acquired; K57.30 Diverticulosis of large intestine without perforation or abscess without bleeding; M41.86 Other forms of scoliosis, lumbar region; Z90.49 Acquired absence of other specified parts of digestive tract; Z90.710 Acquired absence of both cervix and uterus

== ENCOUNTER → 2021-07-13 | Outpatient (CLI) | payer MEDICARE, OTHER | LOC: M PLALAB 13:56 | PROVIDERS: ATTEND Family Medicine | DX: R73.01 Impaired fasting glucose (principal); E55.9 Vitamin D deficiency, unspecified; E78.5 Hyperlipidemia, unspecified; R10.13 Epigastric pain | CPT/HCPCS: 36415; 80061; 80069; 82306; 83036; 83525; 83970; 84439; 84443; 86677; G0463 ==

== ENCOUNTER → 2021-07-15 | Outpatient (CLI) | payer MEDICARE, OTHER ==
--- NOTE | 2021-07-15 13:03 | DEXAMM ---
INDICATION: M85.80 OSTEOPENIA. COMPARISON: 07/12/2019 as well as other prior exams. TECHNIQUE: Bone density was measured using dual-energy x-ray absorptiometry (DEXA). FINDINGS: AP SPINE L1-L4 BMD 1.435 g/cm2 Young Adult T-Score 1.9 Age Matched Z-Score 3.7. LT FEMUR, TOTAL BMD 0.920 g/cm2 Young Adult T-Score -0.7 Age Matched Z-Score 0.9. LT NECK BMD 0.811 g/cm2 Young Adult T-Score -1.6 Age Matched Z-Score 0.2. RT FEMUR, TOTAL BMD 0.897 g/cm2 Young Adult T-Score -0.9 Age Matched Z-Score 0.8. RT NECK BMD 0.789 g/cm2 Young Adult T-Score -1.8 Age Matched Z-Score 0.0. IMPRESSION: There is normal bone density of the spine. There is low bone density of the left hip. There is low bone density of the right hip. The density of the spine has increased 2.7% since the initial exam on 04/10/2003. The density of the spine increased 0.6% since most recent exam on 07/12/2019. The density of the left hip has decreased 5.3% since initial exam on 04/10/2003. The density of the left hip has decreased 3.6% since most recent exam on 07/12/2019. The density of the right hip has decreased 17.4% since the initial exam on 04/10/2003. The density of the right hip has decreased 2.9% since the most recent exam on 07/12/2019. FOLLOW-UP: Recommendation for the next bone density exam: 2 years. <Electronically signed by Benedicto Galaviz > 07/15/21 1209
== END ==
LOC: M WHC 09:30
PROVIDERS: ATTEND Family Medicine
DX: M85.851 Other specified disorders of bone density and structure, right thigh (principal); M85.852 Other specified disorders of bone density and structure, left thigh

== ENCOUNTER → 2021-09-28 | Outpatient (CLI) | payer MEDICARE, OTHER | LOC: M RAD 12:27 | PROVIDERS: ATTEND Family Medicine | DX: N20.0 Calculus of kidney (principal); N28.1 Cyst of kidney, acquired ==

== ENCOUNTER → 2021-12-01 | Outpatient (CLI) | payer MEDICARE, OTHER ==
[~2021-12-01] MED LIST changes: +ATOR1TAB21 PO; +BIOT1TAB PO; +CALC600C3 PO; +CHOL25TA8 PO; +ESTR62CR PV; +GARL600T PO; +MAGN400C2 PO; +OMEG10005 PO; +SYNT75TA PO; +TAMS1CAP17 PO; +TIZA2TA PO; +VITA200016 PO; +VITA400C80 PO; +VITATAB73 PO
[2021-12-01 13:12] LABS: BASO # 0.1 10^3/uL (0.0-0.2); EOS # 0.2 10^3/uL (0.0-0.5); EOS % 2.6 % (0.0-3.0); HEMATOCRIT 42.1 % (36.0-47.0); HEMOGLOBIN 13.6 g/dl (12.0-15.5); LYMPH # 2.2 10^3/uL (1.5-5.0); LYMPH % 35.6 % (24.0-44.0); MEAN CORPUSCULAR HEMOGLOBIN 29.2 pg (27.0-33.0); MEAN CORPUSCULAR HGB CONC 32.3 g/dl (32.0-36.5); MEAN CORPUSCULAR VOLUME 90.3 fl (80.0-96.0); MONO # 0.4 10^3/uL (0.0-0.8); MONO % 6.8 % (2.0-8.0); NEUTROPHILS # 3.3 10^3/uL (1.5-8.5); NEUTROPHILS % 53.8 % (36.0-66.0); PLATELET COUNT, AUTOMATED 245 10^3/uL (150-450); RED BLOOD COUNT 4.66 10^6/uL (4.00-5.40)
[2021-12-01 13:30] LABS: ALBUMIN 3.8 GM/DL (3.2-5.2); ALT/SGPT 26 U/L (12-78); BILIRUBIN,TOTAL 0.7 MG/DL (0.2-1.0); BLOOD UREA NITROGEN 20 MG/DL (7-18); CALCIUM LEVEL 9.1 MG/DL (8.8-10.2); CARBON DIOXIDE LEVEL 28 MEQ/L (21-32); CHLORIDE LEVEL 110 MEQ/L (98-107); CREATININE FOR GFR 0.87 MG/DL (0.55-1.30); FREE T4 1.32 NG/DL (0.76-1.46); GLOMERULAR FILTRATION RATE > 60.0 (>39); GLUCOSE, FASTING 100 MG/DL (70-100); POTASSIUM SERUM 4.1 MEQ/L (3.5-5.1); SODIUM LEVEL 141 MEQ/L (136-145); THYROID STIMULATING HORMONE 0.336 uIU/ML (0.358-3.740); TOTAL PROTEIN 7.2 GM/DL (6.4-8.2); URIC ACID 3.8 MG/DL (2.6-6.0)
[2021-12-01 13:41] LABS: HEMOGLOBIN A1c 6.1 %
== END ==
LOC: M PLALAB 11:09
PROVIDERS: ATTEND Family Medicine
DX: R73.01 Impaired fasting glucose (principal)

== ENCOUNTER 2021-12-04 11:12 | Emergency (ER) | payer MEDICARE, OTHER ==
[~2021-12-04] VITALS: Ht 170.2 cm; Wt 76.8 kg
[2021-12-04 13:07] LABS: BASO % 0.7 % (0.0-1.0); EOS # 0.2 10^3/uL (0.0-0.5); HEMATOCRIT 39.3 % (36.0-47.0); HEMOGLOBIN 12.9 g/dl (12.0-15.5); LYMPH # 1.8 10^3/uL (1.5-5.0); LYMPH % 33.5 % (24.0-44.0); MEAN CORPUSCULAR HEMOGLOBIN 29.5 pg (27.0-33.0); MEAN CORPUSCULAR HGB CONC 32.8 g/dl (32.0-36.5); MEAN CORPUSCULAR VOLUME 89.9 fl (80.0-96.0); MONO # 0.3 10^3/uL (0.0-0.8); MONO % 6.3 % (2.0-8.0); NEUTROPHILS % 56.1 % (36.0-66.0); PLATELET COUNT, AUTOMATED 219 10^3/uL (150-450); RED BLOOD COUNT 4.37 10^6/uL (4.00-5.40); WHITE BLOOD COUNT 5.4 10^3/uL (4.0-10.0)
[2021-12-04 13:25] LABS: ALBUMIN 3.6 GM/DL (3.2-5.2); BILIRUBIN,DIRECT 0.2 MG/DL (0.0-0.2); TOTAL PROTEIN 6.9 GM/DL (6.4-8.2)
[2021-12-04] MEDS ORDERED: KETOROLAC TROMETHAMINE 10 MG TAB PO ONE (14:05)
[2021-12-04] MEDS ORDERED: cefTRIAXone SOD 1GM VIAL (J0696 PER 250MG) IM ONE (14:20)
[2021-12-04] MEDS ORDERED: LIDOCAINE 1% SDV 5ML VIAL DILUENT ONE (14:20)
[2021-12-04] MEDS ORDERED: KETO10TAB PO (14:52)
[2021-12-04] MEDS ORDERED: CEPH500C PO (14:52)
[2021-12-04] MEDS ORDERED: FLOM0.4C39 PO (14:52)
[2021-12-04] MEDS ORDERED: NORCO, ANEXSIA 5/325MG TABLET (HYDROcodone/ACETAMINOPHEN) PO ONE (15:25)
[2021-12-04 16:02] VITALS: BP 154/82
== END 2021-12-04 16:27 | disposition home or self-care (01) ==
LOC: M ED 11:12
DX: N30.00 Acute cystitis without hematuria (principal); N20.1 Calculus of ureter; N28.1 Cyst of kidney, acquired; K57.30 Diverticulosis of large intestine without perforation or abscess without bleeding; Z87.442 Personal history of urinary calculi; Z87.448 Personal history of other diseases of urinary system; E78.5 Hyperlipidemia, unspecified; K21.9 Gastro-esophageal reflux disease without esophagitis; E03.9 Hypothyroidism, unspecified; M41.9 Scoliosis, unspecified; Z85.3 Personal history of malignant neoplasm of breast; Z84.1 Family history of disorders of kidney and ureter; Z79.899 Other long term (current) drug therapy
CPT/HCPCS: 74176; 80047; 80076; 81001; 83690; 85025; 87088; 87186; 96372; 99284; J0696

== ENCOUNTER → 2021-12-09 | Outpatient (CLI) | payer MEDICARE, OTHER ==
[~2021-12-09] MED LIST changes: +CEPH500C PO; +FLOM0.4C39 PO; +KETO10TAB PO
== END ==
LOC: M RAD 11:42
PROVIDERS: ATTEND Physician Assistant
DX: N28.1 Cyst of kidney, acquired (principal); M54.50 Low back pain, unspecified; N20.0 Calculus of kidney; N13.8 Other obstructive and reflux uropathy; N39.0 Urinary tract infection, site not specified

== ENCOUNTER → 2021-12-09 | Outpatient (CLI) | payer MEDICARE, OTHER ==
[2021-12-09 13:10] LABS: BASO # 0.1 10^3/uL (0.0-0.2); EOS # 0.2 10^3/uL (0.0-0.5); EOS % 3.9 % (0.0-3.0); HEMATOCRIT 38.8 % (36.0-47.0); HEMOGLOBIN 12.7 g/dl (12.0-15.5); LYMPH # 1.8 10^3/uL (1.5-5.0); LYMPH % 35.6 % (24.0-44.0); MEAN CORPUSCULAR HEMOGLOBIN 29.5 pg (27.0-33.0); MEAN CORPUSCULAR HGB CONC 32.7 g/dl (32.0-36.5); MONO # 0.4 10^3/uL (0.0-0.8); MONO % 7.6 % (2.0-8.0); NEUTROPHILS # 2.6 10^3/uL (1.5-8.5); NEUTROPHILS % 51.7 % (36.0-66.0); PLATELET COUNT, AUTOMATED 228 10^3/uL (150-450); RED BLOOD COUNT 4.31 10^6/uL (4.00-5.40); WHITE BLOOD COUNT 5.1 10^3/uL (4.0-10.0)
[2021-12-09 13:29] LABS: ALBUMIN 3.4 GM/DL (3.2-5.2); BLOOD UREA NITROGEN 27 MG/DL (7-18); C REACTIVE PROTEIN QUANTITATIV 0.92 MG/DL (0.00-0.30); CALCIUM LEVEL 9.8 MG/DL (8.8-10.2); CARBON DIOXIDE LEVEL 29 MEQ/L (21-32); CHLORIDE LEVEL 110 MEQ/L (98-107); CREATININE FOR GFR 0.91 MG/DL (0.55-1.30); GLOMERULAR FILTRATION RATE > 60.0 (>39); GLUCOSE, FASTING 134 MG/DL (70-100); PHOSPHORUS LEVEL 3.1 MG/DL (2.5-4.9); POTASSIUM SERUM 3.9 MEQ/L (3.5-5.1); SODIUM LEVEL 143 MEQ/L (136-145)
[2021-12-09 13:54] LABS: ERYTHROCYTE SEDIMENTATION RATE 13 mm/hr (0-30)
[2021-12-16 15:08] LABS: CA Oxalate Dihy 60 % (.); Ca Ox Monohydrate 30 % (.); Size <1 mm (.)
== END ==
LOC: M PLALAB 11:02
PROVIDERS: ATTEND Physician Assistant
DX: M54.50 Low back pain, unspecified (principal); N20.0 Calculus of kidney; N13.8 Other obstructive and reflux uropathy; N39.0 Urinary tract infection, site not specified

== ENCOUNTER → 2021-12-11 | Outpatient (CLI) | payer MEDICARE, OTHER | LOC: M LABSMTC 09:31 | PROVIDERS: ATTEND Anesthesiology | DX: Z01.812 Encounter for preprocedural laboratory examination (principal); Z20.822 Contact with and (suspected) exposure to COVID-19 ==

== ENCOUNTER 2021-12-16 10:11 | Day surgery (SDC) | payer MEDICARE, OTHER ==
[~2021-12-16] VITALS: Ht 170.2 cm; Wt 74.4 kg
[~2021-12-16 10:11] MED LIST changes: +LIDOCAINE 2% 100MG/5ML SDV (FOR ANES.) As Ordered ONE; +NS 1,000 ML IV ONE; +propofoL 500 MG/50 ML VIAL As Ordered ONE
[2021-12-16] MEDS ORDERED: fentaNYL 100 MCG/2 ML INJECTION As Ordered ONE (11:29)
[2021-12-16] MEDS ORDERED: ONDANSETRON 4MG/2ML VIAL As Ordered ONE (11:44)
[2021-12-16 12:30] VITALS: BP 162/76
== END 2021-12-16 12:48 | disposition home or self-care (01) ==
LOC: M OPP 10:11
PROVIDERS: ATTEND Internal Medicine Gastroenterology
DX: Z12.11 Encounter for screening for malignant neoplasm of colon (principal); K57.30 Diverticulosis of large intestine without perforation or abscess without bleeding; K64.0 First degree hemorrhoids; K21.9 Gastro-esophageal reflux disease without esophagitis; K31.89 Other diseases of stomach and duodenum; R12 Heartburn; Z79.02 Long term (current) use of antithrombotics/antiplatelets; Z79.2 Long term (current) use of antibiotics; Z79.891 Long term (current) use of opiate analgesic; Z79.810 Long term (current) use of selective estrogen receptor modulators (SERMs); Z79.899 Other long term (current) drug therapy; Z87.442 Personal history of urinary calculi; Z85.3 Personal history of malignant neoplasm of breast; Z92.3 Personal history of irradiation
CPT/HCPCS: 43239; 45385; 88305; J2405; J3010

== ENCOUNTER → 2021-12-25 | Outpatient (REF) | payer MEDICARE, OTHER ==
[~2021-12-25] MED LIST changes: -LIDOCAINE 2% 100MG/5ML SDV (FOR ANES.) As Ordered ONE; -NS 1,000 ML IV ONE; -propofoL 500 MG/50 ML VIAL As Ordered ONE
== END ==
LOC: M SFHCPLAZ 13:13
PROVIDERS: ATTEND Family Medicine
DX: N20.0 Calculus of kidney (principal)

== ENCOUNTER → 2022-05-07 | Outpatient (REF) | payer MEDICARE, OTHER ==
[2022-05-07 15:16] LABS: ALBUMIN 3.7 GM/DL (3.2-5.2); ALT/SGPT 30 U/L (12-78); BILIRUBIN,TOTAL 0.8 MG/DL (0.2-1.0); BLOOD UREA NITROGEN 29 MG/DL (7-18); CALCIUM LEVEL 9.2 MG/DL (8.8-10.2); CARBON DIOXIDE LEVEL 28 MEQ/L (21-32); CHLORIDE LEVEL 108 MEQ/L (98-107); CHOLESTEROL LEVEL 181 MG/DL (<200); CHOLESTEROL RISK RATIO 2.784 (<5); CREATININE FOR GFR 0.83 MG/DL (0.55-1.30); FREE T4 1.36 NG/DL (0.76-1.46); GLOMERULAR FILTRATION RATE > 60.0 (>39); GLUCOSE, FASTING 98 MG/DL (70-100); HDL CHOLESTEROL 65 MG/DL (>40); LDL CHOLESTEROL 99 MG/DL (<100); MAU/CREAT RATIO 8.3 MCG/MG (0.0-30.0); NON-HDL-C 116 MG/DL; POTASSIUM SERUM 4.5 MEQ/L (3.5-5.1); SODIUM LEVEL 141 MEQ/L (136-145); TOTAL PROTEIN 7.2 GM/DL (6.4-8.2); TRIGLYCERIDES LEVEL 85 MG/DL (<150)
[2022-05-07 15:52] LABS: PTH INTACT 43.7 PG/ML (18.5-88.0); TOTAL 25(OH) VITAMIN D 94.7 NG/ML (30.0-100.0)
[2022-05-07 15:58] LABS: HEMOGLOBIN A1c 6.2 %
[2022-05-11 02:09] LABS: INSULIN LEVEL 24.1 uIU/mL (2.6-24.9)
== END ==
LOC: M PLALAB 13:21
PROVIDERS: ATTEND Family Medicine
DX: R73.01 Impaired fasting glucose (principal); E55.9 Vitamin D deficiency, unspecified; E03.9 Hypothyroidism, unspecified; E78.5 Hyperlipidemia, unspecified

== ENCOUNTER → 2022-09-17 | Outpatient (REF) | payer MEDICARE, OTHER ==
[2022-09-17 13:30] LABS: APPEARANCE, URINE CLOUDY (CLEAR); BACTERIA, URINE AUTO 3+ (NEGATIVE); BILIRUBIN, URINE AUTO NEGATIVE (NEGATIVE); BLOOD, URINE BLOOD NEGATIVE (NEGATIVE); CALCIUM OXALATE CRYSTALS SMALL; COLOR, URINE AMBER (YELLOW); GLUCOSE, URINE (UA) AUTO NEGATIVE (NEGATIVE); KETONE, URINE AUTO NEGATIVE (NEGATIVE); LEUKOCYTE ESTERASE, URINE AUTO NEGATIVE (NEGATIVE); MUCUS, URINE SMALL (NEGATIVE); NITRITE, URINE AUTO NEGATIVE (NEGATIVE); PROTEIN, URINE AUTO NEGATIVE (NEGATIVE); RBC, URINE AUTO 0 /HPF (0-3); SQUAMOUS EPITHELIAL CELL UR AU 22 /HPF (0-6); UROBILINOGEN, URINE AUTO 0.2 mg/dL (0.0-2.0); WBC, URINE AUTO 8 /HPF (0-3)
== END ==
LOC: M LAB REF 12:23
PROVIDERS: ATTEND Physician Assistant Medical
DX: N39.0 Urinary tract infection, site not specified (principal)

== ENCOUNTER → 2022-09-17 | Outpatient (CLI) | payer MEDICARE, OTHER ==
[2022-09-17 10:41] LABS: INR 0.91; PROTHROMBIN TIME 12.4 SECONDS (12.5-14.5)
[2022-09-17 10:42] LABS: PARTIAL THROMBOPLASTIN TIME 25.8 SECONDS (24.8-34.2)
[2022-09-17 10:45] LABS: ALBUMIN 3.7 G/DL (3.2-5.2); ALKALINE PHOSPHATASE 68 U/L (46-116); ALT/SGPT 26 U/L (7.0-40); AST/SGOT 24 U/L (<34); BILIRUBIN,TOTAL 0.6 MG/DL (0.3-1.2); BLOOD UREA NITROGEN 21 MG/DL (9-23); CALCIUM LEVEL 9.5 MG/DL (8.3-10.6); CARBON DIOXIDE LEVEL 29 MMOL/L (20-31); CHLORIDE LEVEL 107 MMOL/L (98-107); CREATININE FOR GFR 0.82 MG/DL (0.55-1.30); FREE T4 1.36 NG/DL (0.89-1.76); GLOMERULAR FILTRATION RATE > 60.0 (>39); GLUCOSE, FASTING 114 MG/DL (74-106); POTASSIUM SERUM 4.6 MMOL/L (3.5-5.1); SODIUM LEVEL 141 MMOL/L (136-145); THYROID STIMULATING HORMONE 0.686 uIU/ML (0.55-4.78); TOTAL PROTEIN 6.6 G/DL (5.7-8.2)
== END ==
LOC: M PLALAB 08:25
PROVIDERS: ATTEND Family Medicine
DX: R73.01 Impaired fasting glucose (principal); K76.0 Fatty (change of) liver, not elsewhere classified; N39.0 Urinary tract infection, site not specified; Z79.899 Other long term (current) drug therapy

== ENCOUNTER → 2023-02-15 | Outpatient (REF) | payer MEDICARE, OTHER | LOC: M SFHCPLAZ 11:21 | PROVIDERS: ATTEND Family Medicine | DX: R73.01 Impaired fasting glucose (principal); I10 Essential (primary) hypertension; E55.9 Vitamin D deficiency, unspecified; D72.819 Decreased white blood cell count, unspecified ==

== ENCOUNTER → 2023-02-22 | Outpatient (CLI) | payer MEDICARE, OTHER ==
[2023-02-22 11:18] LABS: HEMOGLOBIN A1c 6.4 % (4.0-6.0)
[2023-02-22 11:40] LABS: VITAMIN B12 LEVEL 870 PG/ML (211-911)
[2023-02-22 11:41] LABS: ALBUMIN 3.8 G/DL (3.2-5.2); ALKALINE PHOSPHATASE 77 U/L (46-116); ALT/SGPT 23 U/L (7.0-40); AST/SGOT 18 U/L (<34); BILIRUBIN,TOTAL 0.7 MG/DL (0.3-1.2); BLOOD UREA NITROGEN 21 MG/DL (9-23); CALCIUM LEVEL 9.5 MG/DL (8.3-10.6); CARBON DIOXIDE LEVEL 28 MMOL/L (20-31); CHLORIDE LEVEL 107 MMOL/L (98-107); CHOLESTEROL LEVEL 181 MG/DL (<200); CHOLESTEROL RISK RATIO 3.46 (<5); CREATININE FOR GFR 0.84 MG/DL (0.55-1.30); GLOMERULAR FILTRATION RATE > 60.0 (>39); GLUCOSE, FASTING 109 MG/DL (74-106); HDL CHOLESTEROL 52.3 MG/DL (>40); LDL CHOLESTEROL 109.9 MG/DL (<100); NON-HDL-C 128.7 MG/DL; POTASSIUM SERUM 4.4 MMOL/L (3.5-5.1); PTH INTACT 48.9 PG/ML (18.5-88.0); SODIUM LEVEL 143 MMOL/L (136-145); TOTAL PROTEIN 7.1 G/DL (5.7-8.2); TRIGLYCERIDES LEVEL 94 MG/DL (<150)
[2023-02-22 11:42] LABS: TOTAL 25(OH) VITAMIN D 111.4 NG/ML (20.0-100.0)
== END ==
LOC: M PLALAB 07:46
PROVIDERS: ATTEND Family Medicine
DX: R73.01 Impaired fasting glucose (principal); I10 Essential (primary) hypertension; E55.9 Vitamin D deficiency, unspecified; D72.819 Decreased white blood cell count, unspecified; Z79.899 Other long term (current) drug therapy

== ENCOUNTER → 2023-03-11 | Outpatient (REF) | payer MEDICARE, OTHER | LOC: M SFHCPLAZ 16:53 | PROVIDERS: ATTEND Family Medicine | DX: R19.7 Diarrhea, unspecified (principal) ==

== ENCOUNTER → 2023-03-22 | Outpatient (REF) | payer MEDICARE, OTHER ==
[2023-03-22 13:29] LABS: AMORPHOUS SEDIMENT SMALL (NEGATIVE); APPEARANCE, URINE TURBID (CLEAR); BACTERIA, URINE AUTO 1+ (NEGATIVE); BILIRUBIN, URINE AUTO NEGATIVE (NEGATIVE); BLOOD, URINE BLOOD NEGATIVE (NEGATIVE); COLOR, URINE AMBER (YELLOW); GLUCOSE, URINE (UA) AUTO NEGATIVE (NEGATIVE); KETONE, URINE AUTO NEGATIVE (NEGATIVE); LEUKOCYTE ESTERASE, URINE AUTO NEGATIVE (NEGATIVE); MUCUS, URINE SMALL (NEGATIVE); NITRITE, URINE AUTO NEGATIVE (NEGATIVE); PROTEIN, URINE AUTO NEGATIVE (NEGATIVE); RBC, URINE AUTO 0 /HPF (0-3); SPECIFIC GRAVITY URINE AUTO 1.018 (1.002-1.035); SQUAMOUS EPITHELIAL CELL UR AU 14 /HPF (0-6); UROBILINOGEN, URINE AUTO 0.2 mg/dL (0.0-2.0); WBC, URINE AUTO 0 /HPF (0-3)
== END ==
LOC: M LAB REF 11:41
PROVIDERS: ATTEND Physician Assistant Medical
DX: N39.0 Urinary tract infection, site not specified (principal)

== ENCOUNTER → 2023-04-14 | Outpatient (CLI) | payer MEDICARE, OTHER ==
[2023-04-14 16:19] LABS: BASO # 0.1 10^3/uL (0.0-0.2); BASO % 0.9 % (0.0-1.0); EOS # 0.2 10^3/uL (0.0-0.5); EOS % 3.1 % (0.0-3.0); HEMATOCRIT 41.5 % (36.0-47.0); HEMOGLOBIN 13.4 g/dl (12.0-15.5); LYMPH # 2.5 10^3/uL (1.5-5.0); LYMPH % 45.8 % (24.0-44.0); MEAN CORPUSCULAR HGB CONC 32.3 g/dl (32.0-36.5); MEAN CORPUSCULAR VOLUME 89.8 fl (80.0-96.0); MONO # 0.4 10^3/uL (0.0-0.8); MONO % 7.5 % (2.0-8.0); NEUTROPHILS # 2.3 10^3/uL (1.5-8.5); NEUTROPHILS % 42.5 % (36.0-66.0); PLATELET COUNT, AUTOMATED 228 10^3/uL (150-450); RED BLOOD COUNT 4.62 10^6/uL (4.00-5.40); WHITE BLOOD COUNT 5.5 10^3/uL (4.0-10.0)
[2023-04-14 16:27] LABS: C REACTIVE PROTEIN QUANTITATIV < 0.40 MG/DL (<1.0)
[2023-04-14 16:28] LABS: ALBUMIN 3.8 G/DL (3.2-5.2); ALKALINE PHOSPHATASE 73 U/L (46-116); ALT/SGPT 23 U/L (7.0-40); AST/SGOT 20 U/L (<34); BILIRUBIN,TOTAL 0.7 MG/DL (0.3-1.2); BLOOD UREA NITROGEN 27 MG/DL (9-23); CALCIUM LEVEL 9.6 MG/DL (8.3-10.6); CARBON DIOXIDE LEVEL 28 MMOL/L (20-31); CHLORIDE LEVEL 105 MMOL/L (98-107); CREATININE FOR GFR 0.81 MG/DL (0.55-1.30); GLOMERULAR FILTRATION RATE > 60.0 (>39); GLUCOSE, FASTING 98 MG/DL (74-106); POTASSIUM SERUM 4.5 MMOL/L (3.5-5.1); SODIUM LEVEL 140 MMOL/L (136-145); TOTAL PROTEIN 6.9 G/DL (5.7-8.2)
[2023-04-14 17:48] LABS: ERYTHROCYTE SEDIMENTATION RATE 15 mm/hr (0-30)
== END ==
LOC: M PLALAB 13:50
PROVIDERS: ATTEND Physician Assistant Medical
DX: R06.02 Shortness of breath (principal)

== ENCOUNTER → 2023-08-25 | Outpatient (REF) | payer MEDICARE, OTHER | LOC: M SFHCPLAZ 09:25 | PROVIDERS: ATTEND Family Medicine | DX: R73.01 Impaired fasting glucose (principal); I10 Essential (primary) hypertension; E03.9 Hypothyroidism, unspecified ==

== ENCOUNTER → 2023-08-25 | Outpatient (CLI) | payer MEDICARE, OTHER ==
[2023-08-25 14:29] LABS: BASO % 0.7 % (0.0-1.0); EOS # 0.2 10^3/uL (0.0-0.5); EOS % 2.7 % (0.0-3.0); HEMATOCRIT 40.5 % (36.0-47.0); HEMOGLOBIN 13.3 g/dl (12.0-15.5); LYMPH # 2.4 10^3/uL (1.5-5.0); LYMPH % 40.6 % (24.0-44.0); MEAN CORPUSCULAR HEMOGLOBIN 30.1 pg (27.0-33.0); MEAN CORPUSCULAR HGB CONC 32.8 g/dl (32.0-36.5); MEAN CORPUSCULAR VOLUME 91.6 fl (80.0-96.0); MONO # 0.5 10^3/uL (0.0-0.8); MONO % 7.7 % (2.0-8.0); NEUTROPHILS # 2.8 10^3/uL (1.5-8.5); NEUTROPHILS % 48.1 % (36.0-66.0); PLATELET COUNT, AUTOMATED 227 10^3/uL (150-450); RED BLOOD COUNT 4.42 10^6/uL (4.00-5.40); WHITE BLOOD COUNT 5.9 10^3/uL (4.0-10.0)
[2023-08-25 14:51] LABS: HEMOGLOBIN A1c 6.2 % (4.0-6.0)
[2023-08-25 15:03] LABS: CREATININE, URINE 112.3 MG/DL; MALB URINE SIEMENS < 3.0 MG/L; MAU/CREAT RATIO 2.6 MCG/MG (0.0-30.0)
[2023-08-25 15:05] LABS: ALBUMIN 3.7 G/DL (3.2-5.2); ALKALINE PHOSPHATASE 61 U/L (46-116); ALT/SGPT 29 U/L (7.0-40); AST/SGOT 18 U/L (<34); BILIRUBIN,TOTAL 0.5 MG/DL (0.3-1.2); BLOOD UREA NITROGEN 23 MG/DL (9-23); CALCIUM LEVEL 9.5 MG/DL (8.3-10.6); CARBON DIOXIDE LEVEL 30 MMOL/L (20-31); CHLORIDE LEVEL 109 MMOL/L (98-107); CREATININE FOR GFR 0.82 MG/DL (0.55-1.30); FERRITIN 60.7 NG/ML (7.3-270.7); GLOMERULAR FILTRATION RATE > 60.0 (>39); GLUCOSE, FASTING 104 MG/DL (74-106); POTASSIUM SERUM 4.5 MMOL/L (3.5-5.1); SODIUM LEVEL 142 MMOL/L (136-145); THYROID STIMULATING HORMONE 1.563 uIU/ML (0.55-4.78); TOTAL PROTEIN 6.7 G/DL (5.7-8.2)
[2023-08-25 15:06] LABS: FREE T4 1.33 NG/DL (0.89-1.76)
[2023-08-25 15:07] LABS: VITAMIN B12 LEVEL 818 PG/ML (211-911)
== END ==
LOC: M PLALAB 10:12
PROVIDERS: ATTEND Family Medicine
DX: R73.01 Impaired fasting glucose (principal); I10 Essential (primary) hypertension; E03.9 Hypothyroidism, unspecified; K21.9 Gastro-esophageal reflux disease without esophagitis; K76.0 Fatty (change of) liver, not elsewhere classified; N20.0 Calculus of kidney; M47.816 Spondylosis without myelopathy or radiculopathy, lumbar region; M85.80 Other specified disorders of bone density and structure, unspecified site; H69.83 Other specified disorders of Eustachian tube, bilateral; R51.9 Headache, unspecified; K31.84 Gastroparesis; R10.13 Epigastric pain; E55.9 Vitamin D deficiency, unspecified; D72.819 Decreased white blood cell count, unspecified

== ENCOUNTER → 2023-09-02 | Outpatient (CLI) | payer MEDICARE, OTHER | LOC: M WHC 09:38 | PROVIDERS: ATTEND Family Medicine | DX: M85.89 Other specified disorders of bone density and structure, multiple sites (principal) ==

== ENCOUNTER → 2024-01-05 | Outpatient (CLI) | payer MEDICARE, OTHER ==
[2024-01-05 13:40] LABS: BASO % 0.7 % (0.0-1.0); EOS # 0.2 10^3/uL (0.0-0.5); EOS % 3.4 % (0.0-3.0); HEMATOCRIT 42.4 % (36.0-47.0); HEMOGLOBIN 13.8 g/dl (12.0-15.5); LYMPH # 2.7 10^3/uL (1.5-5.0); LYMPH % 45.3 % (24.0-44.0); MEAN CORPUSCULAR HEMOGLOBIN 29.4 pg (27.0-33.0); MEAN CORPUSCULAR HGB CONC 32.5 g/dl (32.0-36.5); MEAN CORPUSCULAR VOLUME 90.4 fl (80.0-96.0); MONO # 0.5 10^3/uL (0.0-0.8); MONO % 8.4 % (2.0-8.0); NEUTROPHILS # 2.5 10^3/uL (1.5-8.5); PLATELET COUNT, AUTOMATED 243 10^3/uL (150-450); RED BLOOD COUNT 4.69 10^6/uL (4.00-5.40); WHITE BLOOD COUNT 5.9 10^3/uL (4.0-10.0)
[2024-01-05 14:08] LABS: MAGNESIUM LEVEL 2.2 MG/DL (1.8-2.4)
[2024-01-05 14:10] LABS: PTH INTACT 51.5 PG/ML (18.5-88.0)
[2024-01-05 14:13] LABS: FERRITIN 57.6 NG/ML (7.3-270.7); FREE T4 1.24 NG/DL (0.89-1.76); THYROID STIMULATING HORMONE 1.352 uIU/ML (0.55-4.78)
[2024-01-05 14:14] LABS: TOTAL 25(OH) VITAMIN D 97.8 NG/ML (20.0-100.0)
[2024-01-05 14:22] LABS: HEMOGLOBIN A1c 5.9 % (4.0-6.0)
== END ==
LOC: M PLAIMG 11:31
PROVIDERS: ATTEND Family Medicine
DX: M47.816 Spondylosis without myelopathy or radiculopathy, lumbar region (principal); E55.9 Vitamin D deficiency, unspecified; I10 Essential (primary) hypertension; E03.9 Hypothyroidism, unspecified; R73.01 Impaired fasting glucose; K76.0 Fatty (change of) liver, not elsewhere classified

== ENCOUNTER → 2024-01-05 | Outpatient (REF) | payer MEDICARE, OTHER | LOC: M SFHCPLAZ 11:21 | PROVIDERS: ATTEND Family Medicine | DX: I10 Essential (primary) hypertension (principal); E03.9 Hypothyroidism, unspecified; E55.9 Vitamin D deficiency, unspecified; R73.01 Impaired fasting glucose ==

== ENCOUNTER → 2024-09-10 | Outpatient (CLI) | payer MEDICARE, OTHER ==
[2024-09-10 14:10] LABS: BASO % 0.7 % (0.0-1.0); EOS # 0.1 10^3/uL (0.0-0.5); EOS % 2.2 % (0.0-3.0); HEMOGLOBIN 13.9 g/dl (12.0-15.5); LYMPH # 1.9 10^3/uL (1.5-5.0); LYMPH % 34.5 % (24.0-44.0); MEAN CORPUSCULAR HEMOGLOBIN 29.3 pg (27.0-33.0); MEAN CORPUSCULAR HGB CONC 32.3 g/dl (32.0-36.5); MEAN CORPUSCULAR VOLUME 90.7 fl (80.0-96.0); MONO # 0.5 10^3/uL (0.0-0.8); MONO % 8.4 % (2.0-8.0); PLATELET COUNT, AUTOMATED 244 10^3/uL (150-450); RED BLOOD COUNT 4.74 10^6/uL (4.00-5.40); WHITE BLOOD COUNT 5.5 10^3/uL (4.0-10.0)
[2024-09-10 14:42] LABS: ALBUMIN 3.7 G/DL (3.2-5.2); ALKALINE PHOSPHATASE 61 U/L (35-104); ALT/SGPT 23 U/L (7.0-40); AST/SGOT 20 U/L (<34); BILIRUBIN,TOTAL 0.8 MG/DL (0.3-1.2); BLOOD UREA NITROGEN 24 MG/DL (9-23); CALCIUM LEVEL 9.7 MG/DL (8.3-10.6); CARBON DIOXIDE LEVEL 28 MMOL/L (20-31); CHLORIDE LEVEL 108 MMOL/L (98-107); CHOLESTEROL LEVEL 214 MG/DL (<200); CHOLESTEROL RISK RATIO 3.16 (<5); GLOMERULAR FILTRATION RATE > 60.0 (>39); GLUCOSE, FASTING 99 MG/DL (74-106); HDL CHOLESTEROL 67.7 MG/DL (>40); LDL CHOLESTEROL 121.3 MG/DL (<100); MAGNESIUM LEVEL 2.2 MG/DL (1.8-2.4); NON-HDL-C 146.3 MG/DL; POTASSIUM SERUM 4.6 MMOL/L (3.5-5.1); PTH INTACT 50.3 PG/ML (18.5-88.0); SODIUM LEVEL 141 MMOL/L (136-145); TOTAL PROTEIN 7.3 G/DL (5.7-8.2); TRIGLYCERIDES LEVEL 125 MG/DL (<150)
[2024-09-10 14:43] LABS: FREE T4 1.58 NG/DL (0.89-1.76); THYROID STIMULATING HORMONE 4.698 uIU/ML (0.55-4.78)
[2024-09-10 14:44] LABS: FERRITIN 70.8 NG/ML (7.3-270.7); TOTAL 25(OH) VITAMIN D 117.2 NG/ML (20.0-100.0)
[2024-09-10 15:47] LABS: HEMOGLOBIN A1c 5.6 % (4.0-6.0)
== END ==
LOC: M PLALAB 11:35
PROVIDERS: ATTEND Family Medicine
DX: R73.01 Impaired fasting glucose (principal); I10 Essential (primary) hypertension; E03.9 Hypothyroidism, unspecified; E55.9 Vitamin D deficiency, unspecified; E78.5 Hyperlipidemia, unspecified

== ENCOUNTER 2025-02-04 06:15 | Day surgery (SDC) | payer MEDICARE, OTHER ==
[~2025-02-04] VITALS: Ht 167.6 cm; Wt 74.8 kg
[~2025-02-04 06:15] MED LIST changes: +CYCLOPENTOLATE 1% OPHTH SOLN 2 ML BTL OD SCH; -FLOM0.4C39 PO; +FLURBIPROFEN 0.03% OPHTH SOLN 2.5 ML OD SCH; +PHENYLEPHRINE 2.5% OPHTH SOL 2ML OD SCH; +TAMS-18 PO; +TETRACAINE 0.5% OPHTH SOLN 4ML OD SCH
[2025-02-04] MEDS ORDERED: LR 1,000 ML IV SCH (07:00)
[2025-02-04] MEDS ORDERED: MIDAZOLAM INJ 2 MG/2 ML VIAL As Ordered ONE (07:15)
[2025-02-04] MEDS: CEFUROXIME 1 MG/0.1 ML INTRACAMERAL INJ As Ordered ONE (07:36)
[2025-02-04] MEDS: LIDOCAINE 1% SDV 5 ML VIAL As Ordered ONE (07:36)
[2025-02-04 07:56] VITALS: BP 115/68; TEMP 96.9; O2SAT 96
== END 2025-02-04 08:16 | disposition home or self-care (01) ==
LOC: M SDC 06:15
PROVIDERS: ATTEND Ophthalmology
DX: H25.11 Age-related nuclear cataract, right eye (principal); E03.9 Hypothyroidism, unspecified; E78.00 Pure hypercholesterolemia, unspecified; Z79.890 Hormone replacement therapy; Z79.899 Other long term (current) drug therapy; Z85.3 Personal history of malignant neoplasm of breast; Z92.3 Personal history of irradiation; Z90.710 Acquired absence of both cervix and uterus
CPT/HCPCS: 66984; J0697; J2250; J3010; V2632

== ENCOUNTER 2025-03-25 06:23 | Day surgery (SDC) | payer MEDICARE, OTHER ==
[~2025-03-25] VITALS: Ht 167.6 cm; Wt 74.4 kg
[~2025-03-25 06:23] MED LIST changes: -CYCLOPENTOLATE 1% OPHTH SOLN 2 ML BTL OD SCH; -FLURBIPROFEN 0.03% OPHTH SOLN 2.5 ML OD SCH; -PHENYLEPHRINE 2.5% OPHTH SOL 2ML OD SCH; +POTA10809 PO; +SEMA0.257 PO; +TELM1TAB33 PO; -TETRACAINE 0.5% OPHTH SOLN 4ML OD SCH
[2025-03-25] MEDS: PHENYLEPHRINE 2.5% OPHTH SOL 2ML OS SCH (06:56)
[2025-03-25] MEDS: CYCLOPENTOLATE 1% OPHTH SOLN 2 ML BTL OS SCH (06:56)
[2025-03-25] MEDS: TETRACAINE 0.5% OPHTH SOLN 4ML OS SCH (06:56)
[2025-03-25] MEDS: FLURBIPROFEN 0.03% OPHTH SOLN 2.5 ML OS SCH (06:56)
[2025-03-25] MEDS ORDERED: MIDAZOLAM INJ 2 MG/2 ML VIAL As Ordered ONE (06:56)
[2025-03-25] MEDS ORDERED: LR 1,000 ML IV SCH (07:00)
[2025-03-25] MEDS: CEFUROXIME 1 MG/0.1 ML INTRACAMERAL INJ As Ordered ONE (08:07)
[2025-03-25] MEDS: LIDOCAINE 1% SDV 5 ML VIAL As Ordered ONE (08:07)
[2025-03-25 08:27] VITALS: BP 119/64; TEMP 97.3; O2SAT 96
== END 2025-03-25 08:50 | disposition home or self-care (01) ==
LOC: M SDC 06:23
PROVIDERS: ATTEND Ophthalmology
DX: H25.12 Age-related nuclear cataract, left eye (principal); E03.9 Hypothyroidism, unspecified; E78.00 Pure hypercholesterolemia, unspecified; K21.9 Gastro-esophageal reflux disease without esophagitis; Z85.3 Personal history of malignant neoplasm of breast; Z92.3 Personal history of irradiation; Z79.899 Other long term (current) drug therapy; Z79.890 Hormone replacement therapy; Z87.891 Personal history of nicotine dependence; Z90.710 Acquired absence of both cervix and uterus
CPT/HCPCS: 66984; J0697; J2250; J3010; V2632

== ENCOUNTER → 2025-04-18 | Outpatient (CLI) | payer MEDICARE, OTHER ==
[2025-04-18 15:18] LABS: BASO # 0.1 10^3/uL (0.0-0.2); BASO % 0.8 % (0.0-1.0); EOS # 0.2 10^3/uL (0.0-0.5); EOS % 2.6 % (0.0-3.0); LYMPH # 2.6 10^3/uL (1.5-5.0); LYMPH % 41.1 % (24.0-44.0); MONO # 0.5 10^3/uL (0.0-0.8); MONO % 7.6 % (2.0-8.0); NEUTROPHILS # 3.1 10^3/uL (1.5-8.5); NEUTROPHILS % 47.7 % (36.0-66.0); PLATELET COUNT, AUTOMATED 252 10^3/uL (150-450)
[2025-04-18 15:27] LABS: ESTIMATED AVERAGE GLUCOSE 123.0 MG/DL (60-110)
[2025-04-18 15:50] LABS: FREE T4 1.70 NG/DL (0.89-1.76)
[2025-04-18 15:51] LABS: ALT/SGPT 23 U/L (7.0-40); AST/SGOT 19 U/L (<34); CALCIUM LEVEL 9.5 MG/DL (8.3-10.6); CARBON DIOXIDE LEVEL 28 MMOL/L (20-31); CHLORIDE LEVEL 106 MMOL/L (98-107); CHOLESTEROL LEVEL 166 MG/DL (<200); CHOLESTEROL RISK RATIO 2.69 (<5); CREATININE FOR GFR 0.76 MG/DL (0.55-1.30); GLOMERULAR FILTRATION RATE 80.7 (>39); LDL CHOLESTEROL 76.5 MG/DL (<100); MAGNESIUM LEVEL 2.0 MG/DL (1.8-2.4); NON-HDL-C 104.3 MG/DL; POTASSIUM SERUM 4.1 MMOL/L (3.5-5.1); SODIUM LEVEL 142 MMOL/L (136-145); TRIGLYCERIDES LEVEL 139 MG/DL (<150)
[2025-04-18 15:52] LABS: PTH INTACT 44.5 PG/ML (18.5-88.0)
[2025-04-18 15:53] LABS: TOTAL 25(OH) VITAMIN D 94.2 NG/ML (20.0-100.0)
== END ==
LOC: M PLALAB 13:36
PROVIDERS: ATTEND Family Medicine
DX: I10 Essential (primary) hypertension (principal); R73.01 Impaired fasting glucose; E03.9 Hypothyroidism, unspecified; E78.5 Hyperlipidemia, unspecified; E55.9 Vitamin D deficiency, unspecified; R06.09 Other forms of dyspnea; K76.0 Fatty (change of) liver, not elsewhere classified

== ENCOUNTER → 2025-04-19 | Outpatient (CLI) | payer MEDICARE, OTHER ==
[~2025-04-19] MED LIST changes: +ISOVUE-370 76% 100 ML VIAL As Ordered ONE
== END ==
LOC: M RAD 09:32
PROVIDERS: ATTEND Family Medicine
DX: R79.89 Other specified abnormal findings of blood chemistry (principal); R06.09 Other forms of dyspnea; I70.0 Atherosclerosis of aorta; J43.9 Emphysema, unspecified; J98.11 Atelectasis; R91.8 Other nonspecific abnormal finding of lung field; K44.9 Diaphragmatic hernia without obstruction or gangrene; N20.0 Calculus of kidney; N28.1 Cyst of kidney, acquired
CPT/HCPCS: 71275; Q9967

== ENCOUNTER 2025-05-01 09:35 | Inpatient (IN) | payer MEDICARE, OTHER ==
[~2025-05-01] VITALS: Ht 167.6 cm; Wt 75.1 kg
[2025-05-01] MEDS: LEVOTHYROXINE 50 MCG TABLET (0.05 MG) PO SCH (06:00)
[~2025-05-01 09:35] MED LIST changes: -ISOVUE-370 76% 100 ML VIAL As Ordered ONE; +PANTOPRAZOLE 40MG VIAL IV SCH
[2025-05-01 10:23] LABS: BASO # 0.1 10^3/uL (0.0-0.2); BASO % 0.7 % (0.0-1.0); EOS # 0.2 10^3/uL (0.0-0.5); EOS % 2.4 % (0.0-3.0); LYMPH # 2.4 10^3/uL (1.5-5.0); LYMPH % 28.4 % (24.0-44.0); MONO # 0.6 10^3/uL (0.0-0.8); MONO % 6.9 % (2.0-8.0); NEUTROPHILS # 5.3 10^3/uL (1.5-8.5); NEUTROPHILS % 61.4 % (36.0-66.0); PLATELET COUNT, AUTOMATED 252 10^3/uL (150-450)
[2025-05-01 10:49] LABS: CK-MB VALUE MASS < 1.0 NG/ML (<3.6)
[2025-05-01 10:51] LABS: CPK CREATINE PHOSPHOKINASE 34 U/L (34-145)
[2025-05-01 10:56] LABS: ALT/SGPT 23 U/L (7.0-40); AST/SGOT 20 U/L (<34); CALCIUM LEVEL 9.5 MG/DL (8.3-10.6); CARBON DIOXIDE LEVEL 27 MMOL/L (20-31); CHLORIDE LEVEL 104 MMOL/L (98-107); CREATININE FOR GFR 0.83 MG/DL (0.55-1.30); GLOMERULAR FILTRATION RATE 72.6 (>39); POTASSIUM SERUM 4.2 MMOL/L (3.5-5.1); SODIUM LEVEL 141 MMOL/L (136-145)
[2025-05-01] MEDS: GASTROGRAFIN SOLUTION 30ML PO SCH (11:38)
[2025-05-01] MEDS ORDERED: ISOVUE-370 76% 100 ML VIAL As Ordered ONE (12:20)
[2025-05-01] MEDS ORDERED: SYNT50TA PO (14:00)
[2025-05-01] MEDS ORDERED: PREVAGEN PA (14:02)
[2025-05-01] MEDS ORDERED: HOME MED LIST COMPLETE! XX SCH (14:05)
[2025-05-01] MEDS: NS (Normal Saline) 0.9% 1,000 ML IV SCH ×2 (15:23→21:13)
[2025-05-01] MEDS ORDERED: DEXTROSE 50% 50 ML SYRINGE IV PRN (16:45)
[2025-05-01] MEDS ORDERED: GLUCAGON INJ 1 MG VIAL SC PRN (16:45)
[2025-05-01] MEDS ORDERED: ONDANSETRON 4MG/2ML VIAL IV PRN (16:45)
[2025-05-01] MEDS ORDERED: GLUCOSE 4 GM CHEW PO PRN (16:45)
[2025-05-01] MEDS ORDERED: MORPHINE 4 MG/ML 1 ML VIAL IV PRN (16:45)
[2025-05-01 16:54] LABS: TRIGLYCERIDES LEVEL 87 MG/DL (<150)
[2025-05-01] MEDS: NS (Normal Saline) 0.9% 1,000 ML IV ONE (17:22)
[2025-05-01 18:02] LABS: ESTIMATED AVERAGE GLUCOSE 120.0 MG/DL (60-110)
[2025-05-01] MEDS: ATORVASTATIN 20 MG TAB PO SCH (18:42)
[2025-05-01 20:57] VITALS: BP 122/65; TEMP 97
[2025-05-01] MEDS: PANTOPRAZOLE 40MG VIAL IV SCH (21:11)
[2025-05-01] MEDS: TELMISARTAN 20 MG TAB PO SCH (21:15)
[2025-05-02] MEDS: D5W/0.9% SODIUM CHLORIDE 1,000 ML IV SCH (00:36)
[2025-05-02] MEDS: ACETAMINOPHEN 325 MG TAB PO ONE (05:31)
[2025-05-02 07:26] LABS: PLATELET COUNT, AUTOMATED 197 10^3/uL (150-450)
[2025-05-02 07:41] LABS: ALT/SGPT 17.0 U/L (7.0-40); AST/SGOT 18.0 U/L (<34); CALCIUM LEVEL 8.3 MG/DL (8.3-10.6); CARBON DIOXIDE LEVEL 25.0 MMOL/L (20-31); CHLORIDE LEVEL 110.0 MMOL/L (98-107); CREATININE FOR GFR 0.76 MG/DL (0.55-1.30); GLOMERULAR FILTRATION RATE 80.7 (>39); POTASSIUM SERUM 4.0 MMOL/L (3.5-5.1); SODIUM LEVEL 143.0 MMOL/L (136-145)
[2025-05-02] MEDS: PERCOCET 5MG/325MG TAB PO PRN (09:58)
[2025-05-02] MEDS: LIDOCAINE 1% MDV 20 ML VIAL SC ONE (15:11)
[2025-05-02 20:00] VITALS: BP 126/70; TEMP 96.8
[2025-05-02 20:01] VITALS: O2SAT 98
[2025-05-03 04:00] VITALS: BP 127/68; TEMP 97.7; O2SAT 97
[2025-05-03 06:52] LABS: BASO # 0.1 10^3/uL (0.0-0.2); BASO % 0.4 % (0.0-1.0); EOS # 0.2 10^3/uL (0.0-0.5); EOS % 2.0 % (0.0-3.0); LYMPH # 1.8 10^3/uL (1.5-5.0); LYMPH % 15.8 % (24.0-44.0); MONO # 0.8 10^3/uL (0.0-0.8); MONO % 6.7 % (2.0-8.0); NEUTROPHILS # 8.4 10^3/uL (1.5-8.5); NEUTROPHILS % 74.7 % (36.0-66.0); PLATELET COUNT, AUTOMATED 199 10^3/uL (150-450)
[2025-05-03 07:12] LABS: CALCIUM LEVEL 8.5 MG/DL (8.3-10.6); CARBON DIOXIDE LEVEL 21.0 MMOL/L (20-31); CHLORIDE LEVEL 110.0 MMOL/L (98-107); CREATININE FOR GFR 0.8 MG/DL (0.55-1.30); GLOMERULAR FILTRATION RATE 75.8 (>39); POTASSIUM SERUM 4.4 MMOL/L (3.5-5.1); SODIUM LEVEL 143.0 MMOL/L (136-145)
== END 2025-05-03 12:50 | disposition home or self-care (01) | DRG 440 ==
LOC: M ED 09:35 → M ED INP 16:37 → M MS5PR 20:45
PROVIDERS: ADMIT Internal Medicine; ATTEND Internal Medicine
PROC: 0DBV3ZX Excision of Mesentery, Percutaneous Approach, Diagnostic (ICD-10-PCS; principal; 2025-05-02 13:00)
DX: K85.90 Acute pancreatitis without necrosis or infection, unspecified (principal); K21.9 Gastro-esophageal reflux disease without esophagitis; E03.9 Hypothyroidism, unspecified; E78.5 Hyperlipidemia, unspecified; I10 Essential (primary) hypertension; D48.4 Neoplasm of uncertain behavior of peritoneum; M19.90 Unspecified osteoarthritis, unspecified site; R73.03 Prediabetes; Z79.890 Hormone replacement therapy; Z82.3 Family history of stroke; Z79.899 Other long term (current) drug therapy; Z85.3 Personal history of malignant neoplasm of breast

== ENCOUNTER → 2025-05-14 | Outpatient (REF) | payer MEDICARE, OTHER ==
[~2025-05-14] MED LIST changes: -PANTOPRAZOLE 40MG VIAL IV SCH; +PREVAGEN PA; +SYNT50TA PO
== END ==
LOC: M SFHCPLAZ 11:29
PROVIDERS: ATTEND Family Medicine
DX: I10 Essential (primary) hypertension (principal); R73.01 Impaired fasting glucose; K63.89 Other specified diseases of intestine

== ENCOUNTER → 2025-05-14 | Outpatient (CLI) | payer MEDICARE, OTHER ==
[2025-05-14 16:05] LABS: BASO # 0.1 10^3/uL (0.0-0.2); BASO % 0.8 % (0.0-1.0); EOS # 0.2 10^3/uL (0.0-0.5); EOS % 2.6 % (0.0-3.0); LYMPH # 2.3 10^3/uL (1.5-5.0); LYMPH % 36.7 % (24.0-44.0); MONO # 0.4 10^3/uL (0.0-0.8); MONO % 5.8 % (2.0-8.0); NEUTROPHILS # 3.3 10^3/uL (1.5-8.5); NEUTROPHILS % 53.9 % (36.0-66.0); PLATELET COUNT, AUTOMATED 316 10^3/uL (150-450)
[2025-05-14 16:07] LABS: TOTAL 25(OH) VITAMIN D 103.1 NG/ML (20.0-100.0)
[2025-05-14 16:12] LABS: LDH LACTATE DEHYDROGENASE 172 U/L (120-246)
[2025-05-14 16:16] LABS: FREE T4 1.36 NG/DL (0.89-1.76)
[2025-05-14 16:30] LABS: ESTIMATED AVERAGE GLUCOSE 117.0 MG/DL (60-110)
[2025-05-14 16:42] LABS: ALT/SGPT 21 U/L (7.0-40); AST/SGOT 22 U/L (<34); CA 125 5.0 U/ML (<35); CA19-9 TUMOR MARKER,CARBOHYDRA 18.4 U/ML (<35.0); CALCIUM LEVEL 9.8 MG/DL (8.3-10.6); CARBON DIOXIDE LEVEL 25 MMOL/L (20-31); CHLORIDE LEVEL 107 MMOL/L (98-107); CHOLESTEROL LEVEL 167 MG/DL (<200); CHOLESTEROL RISK RATIO 3.30 (<5); CREATININE FOR GFR 0.93 MG/DL (0.55-1.30); GLOMERULAR FILTRATION RATE 63.3 (>39); LDL CHOLESTEROL 98.0 MG/DL (<100); MAGNESIUM LEVEL 2.0 MG/DL (1.8-2.4); NON-HDL-C 116.4 MG/DL; POTASSIUM SERUM 4.2 MMOL/L (3.5-5.1); PTH INTACT 47.1 PG/ML (18.5-88.0); SODIUM LEVEL 143 MMOL/L (136-145); TRIGLYCERIDES LEVEL 92 MG/DL (<150)
[2025-05-17 14:11] LABS: INSULIN LEVEL 12.8 uIU/mL (<=18.4)
[2025-05-18 08:48] LABS: LDH 152 U/L (120-250)
[2025-05-20 13:18] LABS: (LD) FRACTION 1 25 % (18-32); (LD) FRACTION 2 33 % (29-42); (LD) FRACTION 3 23 % (14-30); (LD) FRACTION 4 9 % (6-13); (LD) FRACTION 5 9 % (5-18)
[2025-05-26 11:08] LABS: CHROMOGRANIN A 212 ng/mL (ADULTS: <311)
== END ==
LOC: M PLALAB 12:01
PROVIDERS: ATTEND Family Medicine
DX: R19.00 Intra-abdominal and pelvic swelling, mass and lump, unspecified site (principal); I10 Essential (primary) hypertension; E03.9 Hypothyroidism, unspecified; E55.9 Vitamin D deficiency, unspecified; K63.89 Other specified diseases of intestine; R73.01 Impaired fasting glucose; E78.5 Hyperlipidemia, unspecified; R06.09 Other forms of dyspnea; K76.0 Fatty (change of) liver, not elsewhere classified; Z85.3 Personal history of malignant neoplasm of breast

== ENCOUNTER → 2025-05-15 | Outpatient (REF) | payer MEDICARE, OTHER ==
[2025-05-22 19:22] LABS: CALPROTECTIN STOOL 27 mcg/g (<50)
[2025-05-24 02:38] LABS: PANCREATIC ELASTASE STOOL > 800 mcg/g (>200)
== END ==
LOC: M SFHCPLAZ 10:10
PROVIDERS: ATTEND Family Medicine
DX: R19.7 Diarrhea, unspecified (principal)

== ENCOUNTER → 2025-06-26 | Outpatient (CLI) | payer MEDICARE, OTHER | LOC: M PLAIMG 13:28 | PROVIDERS: ATTEND Family Medicine | DX: R06.02 Shortness of breath (principal) ==

== ENCOUNTER → 2025-06-28 | Outpatient (CLI) | payer MEDICARE, OTHER | LOC: M PLARAD 10:44 | PROVIDERS: ATTEND Family Medicine | DX: K63.89 Other specified diseases of intestine (principal); R19.7 Diarrhea, unspecified; K86.2 Cyst of pancreas ==